=== PATIENT | male | born 1960 | race American Indian/Alaskan Native ===

== ENCOUNTER 2018-09-28 13:46 | Outpatient (CLI) | payer MEDICARE, MEDICAID ==
[2018-09-28 14:09] LABS: #Eosinphils 0.2 thou/uL (0.0-0.7); #Lymphocytes 1.4 thou/uL (1.20-3.40); #Monocytes 0.6 thou/uL (0.11-0.59); #Neutrophils 6.3 thou/uL (1.40-6.50); %Basophils 0.4 % (0.0-1.0); %Eosinophils 1.8 % (0.0-10.0); %Lymphocytes 16.3 % (21.0-51.0); %Monocytes 6.9 % (0.0-10.0); %Neutrophils 74.6 % (42.0-75.0); Mean Corpuscular Hemoglobin 27.7 pg (27.0-31.0); Mean Corpuscular Volume 89.3 fL (78.0-98.0); Mean Platelet Volume 10.6 fL (7.4-10.4); Platelet Count 162 thou/uL (130-400); Red Blood Cell (RBC) Count 5.06 mill/uL (4.70-6.10); White Blood Cell (WBC) Count 8.5 thou/uL (4.8-10.8)
[2018-09-28 14:21] LABS: ALT (SGPT) 12 U/L (8-55); AST (SGOT) 10 U/L (5-34); Albumin 3.4 g/dL (3.5-5.0); Alkaline Phosphatase 113 U/L (40-150); Anion Gap 16 mmol/L (10-20); BUN (Urea Nitrogen) 35 mg/dL (8.4-25.7); Bilirubin, Total 0.4 mg/dL (0.2-1.2); Calc. Creatinine Clearance 0 mL/min (70-130); Calcium 8.2 mg/dL (7.8-10.44); Carbon Dioxide 23 mmol/L (22-29); Cardiac Risk 6.9 (Less than 4.5); Chloride 105 mmol/L (98-107); Cholesterol 137 mg/dl (< 200 Desired); Estimated GFR-MDRD 52; Glucose 381 mg/dL (70-105); HDL Cholesterol 20 mg/dL (>60 Neg Risk); LDL Cholesterol, Calculated 69 mg/dL; Potassium 4.5 mmol/L (3.5-5.1); Protein, Total 6.4 g/dL (6.0-8.3); Sodium 139 mmol/L (136-145); Triglycerides 240 mg/dL (Less than 150)
[2018-09-28 22:33] LABS: Hemoglobin A1c 9.3 % (4.0-6.0)
== END 2018-09-28 13:47 | disposition home or self-care (01) ==
LOC: MADLAB 13:46
PROVIDERS: ATTEND Family Medicine
DX: I12.9 Hypertensive chronic kidney disease with stage 1 through stage 4 chronic kidney disease, or unspecified chronic kidney disease (principal); N18.3 Chronic kidney disease, stage 3 (moderate); D63.1 Anemia in chronic kidney disease; E78.2 Mixed hyperlipidemia; I70.70 Unspecified atherosclerosis of other type of bypass graft(s) of the extremities
CPT/HCPCS: 80053; 80061; 83036; 84443; 85025

== ENCOUNTER 2019-12-09 21:26 | Inpatient (IN) | payer MEDICARE, OTHER, MEDICAID ==
[2019-12-09] MEDS ORDERED: Dextrose 50% Abboject 50 ML SYRINGE IVP PRN (23:45)
[2019-12-09] MEDS ORDERED: Dextrose 5% in Water 1,000 ML IV PRN (23:45)
[2019-12-09] MEDS ORDERED: CEFAZOLIN 1 GM in Sodium Chloride 0.9% 100 ML IVPB SCH (23:59)
[2019-12-10] MEDS: CEFAZOLIN 1 GM in Sodium Chloride 0.9% 100 ML IVPB SCH ×4 (00:14→23:45)
[2019-12-10] MEDS: Acetaminophen 500 MG TAB PO PRN ×2 (07:24→15:53)
[2019-12-10] MEDS ORDERED: Lantus 1000 UNITS/10 ML VIAL SC SCH (09:00)
[2019-12-10] MEDS ORDERED: Metoprolol Tartrate 50 MG TAB PO SCH (09:00)
[2019-12-10] MEDS: HumaLOG 300 UNITS/3 ML VIAL SC SCH ×3 (09:51→17:25)
[2019-12-10] MEDS: Apixaban 5 MG TAB PO SCH ×2 (09:54→20:29)
[2019-12-10] MEDS: Furosemide 20 MG TAB PO SCH ×2 (09:54→14:22)
[2019-12-10] MEDS: Alogliptin 25 MG TAB PO SCH (09:54)
[2019-12-10] MEDS: Emollient 15 oz bottle 450 ML, Triamcinolone Acetonide 200 MG TOP SCH ×3 (09:55→21:04)
[2019-12-10] MEDS: Amlodipine 5 MG TAB PO SCH (09:55)
[2019-12-10] MEDS ORDERED: Mag-Al Plus 1200 MG/1200 MG/120 MG/30 ML UDCUP PO PRN (10:39)
[2019-12-10] MEDS: Lantus 1000 UNITS/10 ML VIAL SC SCH (10:53)
[2019-12-10 11:41] LABS: #Basophils 0.1 thou/uL (0.0-0.2); #Eosinphils 0.1 thou/uL (0.0-0.7); #Lymphocytes 0.9 thou/uL (1.20-3.40); #Monocytes 0.8 thou/uL (0.11-0.59); #Neutrophils 7.5 thou/uL (1.40-6.50); %Eosinophils 1.5 % (0.0-10.0); %Neutrophils 79.5 % (42.0-75.0); Hemoglobin 9.6 g/dL (14.0-18.0); Mean Corpuscular HGB CONC 32.6 g/dL (32.0-36.0); Mean Corpuscular Hemoglobin 28.7 pg (27.0-31.0); Mean Corpuscular Volume 88.1 fL (78.0-98.0); Mean Platelet Volume 9.1 fL (7.4-10.4); Platelet Count 214 thou/uL (130-400); RBC Distribution Width 15.1 % (11.5-14.5); Red Blood Cell (RBC) Count 3.34 mill/uL (4.70-6.10); White Blood Cell (WBC) Count 9.4 thou/uL (4.8-10.8)
[2019-12-10 11:53] LABS: Anion Gap 18 mmol/L (10-20); BUN (Urea Nitrogen) 52 mg/dL (8.4-25.7); Calc. Creatinine Clearance 42 mL/min (70-130); Calcium 7.6 mg/dL (7.8-10.44); Carbon Dioxide 15 mmol/L (22-29); Chloride 111 mmol/L (98-107); Estimated GFR-MDRD 34; Glucose 67 mg/dL (70-105); Sodium 140 mmol/L (136-145)
--- NOTE | 2019-12-10 15:42 | HP ---
PRIMARY CARE PROVIDER: Shikha Adrian MD. HISTORY OF PRESENT ILLNESS: The patient is a 59-year-old male with a past history of insulin-dependent diabetes, medication noncompliance, hypertension, peripheral vascular disease, left BKA, chronic kidney disease, congestive heart failure, who presents for admission for long-term antibiotics and rehabilitation. The patient was recently discharged from [facility] following a hospitalization for sepsis secondary to osteomyelitis and urinary tract infection. The patient also was found to have MSSA bacteremia as well. He was treated initially with vancomycin, cefepime and Flagyl. It was recommended that the patient's diabetic be treated with surgical management. However, patient refused even though he was told that antibiotics alone was not the recommended treatment. With his bacteremia, transthoracic echo was performed which did not find any vegetations. His ejection fraction was 30% to 35%. Long-term antibiotics were initiated. The patient was placed on IV cefazolin and p.o. levofloxacin prior to discharge. PAST MEDICAL HISTORY: 1. Insulin-dependent diabetes mellitus. 2. Infected diabetic ulcers (right lateral broad-based ulcer as well as a small ulcer located between the 4th and 5th digits of the right foot). 3. Left sacral decubitus ulcer present on arrival. 4. Systolic congestive heart failure. 5. Chronic kidney disease stage 3. 6. Hypertension. 7. Hyperlipidemia. 8. History of nicotine dependence. 9. Atrial fibrillation. 10. Coronary artery disease. 11. Peripheral vascular disease. 12. Medication noncompliance. 13. Uncontrolled insulin-dependent diabetes mellitus. ALLERGIES: HYDROCODONE AND METFORMIN. PAST SURGICAL HISTORY: 1. Left BKA. 2. Hernia repair. 3. Tonsillectomy. 4. Right leg skin surgery. PAST SOCIAL HISTORY: The patient lives at home with his partner. Regarding smoking, he states that he is a former smoker. He denies any alcohol or drug use. REVIEW OF SYSTEMS: GENERAL: Patient denies fever, chills, night sweats. HEENT: Patient denies vision changes or eye pain or sore throat. CARDIOVASCULAR: Patient denies chest pain, palpitations. RESPIRATORY: Patient denies cough, shortness of breath. ABDOMEN: Patient denies abdominal pain, nausea, vomiting. He does report chronic diarrhea. URINARY: Patient denies dysuria, hematuria. SKIN: See HPI. PSYCHIATRIC: Patient denies anxiety or depression symptoms. NEUROLOGIC: Patient denies numbness, tingling, confusion. PHYSICAL EXAMINATION: VITAL SIGNS: Temperature 98.6, pulse 73, respirations 19, oxygen 98% on room air, blood pressure 130/73. GENERAL: The patient is alert and oriented x3. He is very disheveled in appearance. HEENT: Extraocular muscles intact. Moist mucous membranes. Poor dentition. CARDIOVASCULAR: Regular rate and rhythm. No murmurs, rubs, or gallops. LUNGS: Clear to auscultation bilaterally. ABDOMEN: Soft, nontender to palpation. Nondistended. No organomegaly. EXTREMITIES: Left lower extremity status post BKA. Right lower extremity with an approximately 4 cm broad-based ulcer to the lateral aspect of the right foot, ulceration between the 4th and 5th digits on the right foot as well as a sacral decubitus ulcer present on admission. SKIN: Changes as noted above. NEUROLOGIC: Cranial nerves 2 through 12 intact grossly. PSYCHIATRIC: Appropriate mood and affect at this time. LABORATORY DATA: Point of care glucose is 66 yesterday evening, point of care glucose was 76 this morning. IMAGING: Transthoracic echo, which showed ejection fraction of 30% to 35%. Right foot x-ray performed on December 05, 2019, at [facility] showed an ulceration of the lateral right foot with findings suspicious for 5th metatarsal base and possibly cuboid osteomyelitis. Arterial ultrasound performed on December 06, 2019, at [facility] showed limited exam without compressibility of the vessels at the level of the ankle, biphasic and monophasic Doppler waveform patterns across the right lower extremity suggestive of aortoiliac disease of significance. Transthoracic echocardiogram performed on December 07, 2019, showed reduced systolic function with an ejection fraction of 30% to 35%, akinesis of mid to distal anterior wall and apex. No pericardial effusion. ASSESSMENT AND PLAN: The patient is a 59-year-old male with medication noncompliance and poorly-controlled insulin-dependent diabetes mellitus, who presents for rehabilitation and long-term antibiotic treatment via IV. 1. Sepsis secondary to osteomyelitis. We will continue antibiotics per recommendations of Infectious Disease with 2 g of Ancef q.12 hours and levofloxacin 750 mg p.o. every other day for a total of 6 weeks of therapy. We will likely need to repeat blood cultures prior to discharge. 2. MSSA bacteremia, see above. 3. Diabetes mellitus. The patient had an A1c of 9.6 at the hospital. He is on Lantus 30 units at home. We will decrease this due to lower blood sugars identified this morning and we will titrate based on before meals and at bedtime Accu- Cheks. Continue sliding scale insulin as well. Diabetic diet ordered. 4. Systolic congestive heart failure. We will put patient on fluid restriction in order to prevent exacerbation. Continue home medications. 5. Chronic kidney disease stage 3. We will renally dose patient's medications and avoid nephrotoxic medications as possible. 6. Infected diabetic foot ulcer. Continue routine wound care. 7. Hypertension. Resume patient's home antihypertensive regimen. Blood pressures have been stable. 8. Atrial fibrillation. The patient is currently rate and rhythm controlled. Continue long-term anticoagulation with Eliquis. 9. Coronary artery disease. We will resume patient's home medications. 10. Peripheral vascular disease. Resume patient's home medications. 11. Hyperlipidemia. Resume home medications. 12. Sacral decubitus ulcer. We will continue wound care as well as position changes and offloading as possible. 13. Recent history of complicated urinary tract infection. Patient had a Pagan catheter that was placed prior to discharge from [facility]. The catheter fell out after admission here and the patient refused to have it replaced. At this time, I do not see any indication for catheter replacement and this may even serve as a new focus of infection. We will hold off at this time and monitor urine output and if there is any concern for retention, may consider replacing. Disposition: Stable. Code status: Full. DVT prophylaxis. The patient is on full anticoagulation with Eliquis. >35 minutes spent preparing patient's admission, including reviewing previous hospital records Job ID: [id number] [facility]
[2019-12-10] MEDS: traMADol HCl 50 MG TAB PO PRN (19:56)
[2019-12-10] MEDS: Gabapentin 300 MG CAP PO SCH (20:29)
[2019-12-10] MEDS ORDERED: FLU VACC QS2020-21(6MOS UP)/PF 60 MCG/0.5 ML SYRINGE IM ONE (21:00)
[2019-12-11] MEDS: HumaLOG 300 UNITS/3 ML VIAL SC SCH ×3 (08:54→17:10)
[2019-12-11] MEDS: Lantus 1000 UNITS/10 ML VIAL SC SCH (08:54)
[2019-12-11] MEDS: Gabapentin 300 MG CAP PO SCH ×2 (08:55→20:46)
[2019-12-11] MEDS: Alogliptin 25 MG TAB PO SCH (08:55)
[2019-12-11] MEDS: Amlodipine 5 MG TAB PO SCH (08:55)
[2019-12-11] MEDS: Furosemide 20 MG TAB PO SCH ×2 (08:55→15:01)
[2019-12-11] MEDS: Tamsulosin HCl 0.4 MG CAP PO SCH (08:56)
[2019-12-11] MEDS: Lisinopril 5 MG TAB PO SCH (08:56)
[2019-12-11] MEDS: Apixaban 5 MG TAB PO SCH ×2 (08:57→20:46)
[2019-12-11] MEDS: Emollient 15 oz bottle 450 ML, Triamcinolone Acetonide 200 MG TOP SCH ×2 (08:57→20:51)
[2019-12-11] MEDS: CEFAZOLIN 1 GM in Sodium Chloride 0.9% 100 ML IVPB SCH ×4 (12:14→23:38)
[2019-12-12] MEDS: Lantus 1000 UNITS/10 ML VIAL SC SCH (08:24)
[2019-12-12] MEDS: Gabapentin 300 MG CAP PO SCH ×2 (08:25→21:10)
[2019-12-12] MEDS: Lisinopril 5 MG TAB PO SCH (08:26)
[2019-12-12] MEDS: Furosemide 20 MG TAB PO SCH ×2 (08:27→15:17)
[2019-12-12] MEDS: Amlodipine 5 MG TAB PO SCH (08:27)
[2019-12-12] MEDS: Tamsulosin HCl 0.4 MG CAP PO SCH (08:27)
[2019-12-12] MEDS: Alogliptin 25 MG TAB PO SCH (08:27)
[2019-12-12] MEDS: HumaLOG 300 UNITS/3 ML VIAL SC SCH ×3 (08:29→17:16)
[2019-12-12] MEDS: Apixaban 5 MG TAB PO SCH ×2 (08:32→21:10)
[2019-12-12] MEDS: Polyethylene Glycol 3350 17 GM Packet PER TUBE SCH (08:33)
[2019-12-12] MEDS: Emollient 15 oz bottle 450 ML, Triamcinolone Acetonide 200 MG TOP SCH ×2 (11:27→21:20)
[2019-12-12] MEDS: Acetaminophen 500 MG TAB PO PRN ×2 (11:27→21:10)
[2019-12-12] MEDS: CEFAZOLIN 1 GM in Sodium Chloride 0.9% 100 ML IVPB SCH ×4 (12:36→23:25)
[2019-12-12] MEDS: HumaLOG 300 UNITS/3 ML VIAL SC PRN (21:10)
[2019-12-13 06:19] LABS: Hemoglobin 9.2 g/dL (14.0-18.0); Platelet Count 236 thou/uL (130-400)
[2019-12-13] MEDS: Tamsulosin HCl 0.4 MG CAP PO SCH (08:04)
[2019-12-13] MEDS: Polyethylene Glycol 3350 17 GM Packet PER TUBE SCH (08:04)
[2019-12-13] MEDS: Apixaban 5 MG TAB PO SCH ×2 (08:04→20:52)
[2019-12-13] MEDS: Alogliptin 25 MG TAB PO SCH (08:05)
[2019-12-13] MEDS: Gabapentin 300 MG CAP PO SCH ×2 (08:05→20:52)
[2019-12-13] MEDS: Amlodipine 5 MG TAB PO SCH (08:05)
[2019-12-13] MEDS: Lisinopril 5 MG TAB PO SCH (08:06)
[2019-12-13] MEDS: Furosemide 20 MG TAB PO SCH ×2 (08:06→14:21)
[2019-12-13] MEDS: HumaLOG 300 UNITS/3 ML VIAL SC SCH ×3 (08:42→17:06)
[2019-12-13] MEDS: Lantus 1000 UNITS/10 ML VIAL SC SCH (08:50)
[2019-12-13] MEDS: Emollient 15 oz bottle 450 ML, Triamcinolone Acetonide 200 MG TOP SCH ×2 (09:04→21:11)
[2019-12-13] MEDS: CEFAZOLIN 1 GM in Sodium Chloride 0.9% 100 ML IVPB SCH ×4 (11:44→23:45)
[2019-12-13] MEDS: HumaLOG 300 UNITS/3 ML VIAL SC PRN (21:02)
[2019-12-14] MEDS: Tamsulosin HCl 0.4 MG CAP PO SCH (08:17)
[2019-12-14] MEDS: Alogliptin 25 MG TAB PO SCH (08:17)
[2019-12-14] MEDS: Polyethylene Glycol 3350 17 GM Packet PER TUBE SCH (08:17)
[2019-12-14] MEDS: Furosemide 20 MG TAB PO SCH ×2 (08:17→14:39)
[2019-12-14] MEDS: Amlodipine 5 MG TAB PO SCH (08:17)
[2019-12-14] MEDS: Apixaban 5 MG TAB PO SCH ×2 (08:17→19:28)
[2019-12-14] MEDS: Gabapentin 300 MG CAP PO SCH ×2 (08:17→19:28)
[2019-12-14] MEDS: Lantus 1000 UNITS/10 ML VIAL SC SCH (08:18)
[2019-12-14] MEDS: Lisinopril 5 MG TAB PO SCH (08:18)
[2019-12-14] MEDS: Emollient 15 oz bottle 450 ML, Triamcinolone Acetonide 200 MG TOP SCH ×2 (08:19→22:30)
[2019-12-14] MEDS: HumaLOG 300 UNITS/3 ML VIAL SC SCH ×3 (08:19→17:29)
[2019-12-14] MEDS: CEFAZOLIN 1 GM in Sodium Chloride 0.9% 100 ML IVPB SCH ×2 (12:12→12:13)
[2019-12-14] MEDS: Acetaminophen 500 MG TAB PO PRN (19:28)
[2019-12-14] MEDS: Senokot S 8.6-50 MG TAB PO SCH (19:28)
[2019-12-14] MEDS: HumaLOG 300 UNITS/3 ML VIAL SC PRN (20:57)
[2019-12-15] MEDS ORDERED: CEFAZOLIN 1 GM VIAL ONE (06:21)
[2019-12-15] MEDS: CEFAZOLIN 1 GM in Sodium Chloride 0.9% 100 ML IVPB SCH ×4 (06:23→12:04)
[2019-12-15] MEDS: HumaLOG 300 UNITS/3 ML VIAL SC SCH ×3 (09:14→17:17)
[2019-12-15] MEDS: Senokot S 8.6-50 MG TAB PO SCH ×2 (09:15→21:19)
[2019-12-15] MEDS: Lantus 1000 UNITS/10 ML VIAL SC SCH (09:15)
[2019-12-15] MEDS: Apixaban 5 MG TAB PO SCH ×2 (09:15→20:16)
[2019-12-15] MEDS: Amlodipine 5 MG TAB PO SCH (09:15)
[2019-12-15] MEDS: Lisinopril 5 MG TAB PO SCH (09:16)
[2019-12-15] MEDS: Alogliptin 25 MG TAB PO SCH (09:16)
[2019-12-15] MEDS: Tamsulosin HCl 0.4 MG CAP PO SCH (09:16)
[2019-12-15] MEDS: Gabapentin 300 MG CAP PO SCH ×2 (09:16→20:16)
[2019-12-15] MEDS: traMADol HCl 50 MG TAB PO PRN (09:17)
[2019-12-15] MEDS: Furosemide 20 MG TAB PO SCH ×2 (09:17→14:35)
[2019-12-15] MEDS: Polyethylene Glycol 3350 17 GM Packet PER TUBE SCH (09:17)
[2019-12-15] MEDS: Emollient 15 oz bottle 450 ML, Triamcinolone Acetonide 200 MG TOP SCH ×2 (09:18→21:20)
[2019-12-15] MEDS: CEFAZOLIN 2 GM in Premix Bag 1 BAG IVPB SCH (23:58)
[2019-12-16 05:47] LABS: Hemoglobin 9.4 g/dL (14.0-18.0); Platelet Count 252 thou/uL (130-400)
[2019-12-16] MEDS: Tamsulosin HCl 0.4 MG CAP PO SCH (08:34)
[2019-12-16] MEDS: Alogliptin 25 MG TAB PO SCH (08:35)
[2019-12-16] MEDS: Gabapentin 300 MG CAP PO SCH ×2 (08:35→20:23)
[2019-12-16] MEDS: Furosemide 20 MG TAB PO SCH ×2 (08:35→14:48)
[2019-12-16] MEDS: Lisinopril 5 MG TAB PO SCH (08:35)
[2019-12-16] MEDS: Apixaban 5 MG TAB PO SCH ×2 (08:35→20:23)
[2019-12-16] MEDS: Amlodipine 5 MG TAB PO SCH (08:35)
[2019-12-16] MEDS: Emollient 15 oz bottle 450 ML, Triamcinolone Acetonide 200 MG TOP SCH ×2 (08:36→20:24)
[2019-12-16] MEDS: Polyethylene Glycol 3350 17 GM Packet PER TUBE SCH (08:36)
[2019-12-16] MEDS: Senokot S 8.6-50 MG TAB PO SCH ×2 (08:36→20:23)
[2019-12-16] MEDS: HumaLOG 300 UNITS/3 ML VIAL SC SCH ×3 (08:42→17:22)
[2019-12-16] MEDS: Lantus 1000 UNITS/10 ML VIAL SC SCH (08:43)
[2019-12-16] MEDS: CEFAZOLIN 2 GM in Premix Bag 1 BAG IVPB SCH ×2 (11:44→23:49)
[2019-12-16] MEDS: HumaLOG 300 UNITS/3 ML VIAL SC PRN (21:44)
[2019-12-17] MEDS: traMADol HCl 50 MG TAB PO PRN (00:03)
[2019-12-17 07:25] LABS: #Basophils 0.1 thou/uL (0.0-0.2); #Eosinphils 0.3 thou/uL (0.0-0.7); #Lymphocytes 0.9 thou/uL (1.20-3.40); #Monocytes 0.7 thou/uL (0.11-0.59); #Neutrophils 9.3 thou/uL (1.40-6.50); %Basophils 0.6 % (0.0-1.0); %Eosinophils 2.3 % (0.0-10.0); %Lymphocytes 7.9 % (21.0-51.0); %Monocytes 5.8 % (0.0-10.0); %Neutrophils 83.4 % (42.0-75.0); Hemoglobin 9.2 g/dL (14.0-18.0); Mean Corpuscular Hemoglobin 27.5 pg (27.0-31.0); Mean Corpuscular Volume 88.8 fL (78.0-98.0); Mean Platelet Volume 8.2 fL (7.4-10.4); Platelet Count 255 thou/uL (130-400); RBC Distribution Width 15.1 % (11.5-14.5); Red Blood Cell (RBC) Count 3.35 mill/uL (4.70-6.10); White Blood Cell (WBC) Count 11.2 thou/uL (4.8-10.8)
[2019-12-17 07:42] LABS: ALT (SGPT) Less than 7 U/L (8-55); AST (SGOT) 11 U/L (5-34); Albumin 2.4 g/dL (3.5-5.0); Alkaline Phosphatase 183 U/L (40-110); Anion Gap 17 mmol/L (10-20); BUN (Urea Nitrogen) 54 mg/dL (8.4-25.7); Bilirubin, Total 0.3 mg/dL (0.2-1.2); CRP (Inflammatory) 10.88 mg/dL (= or < 0.5); Calc. Creatinine Clearance 35 mL/min (70-130); Calcium 7.8 mg/dL (7.8-10.44); Carbon Dioxide 19 mmol/L (22-29); Chloride 109 mmol/L (98-107); Estimated GFR-MDRD 27; Globulin 3.5 g/dL (2.4-3.5); Glucose 162 mg/dL (70-105); Potassium 3.4 mmol/L (3.5-5.1); Protein, Total 5.9 g/dL (6.0-8.3); Sodium 142 mmol/L (136-145)
[2019-12-17] MEDS: Gabapentin 300 MG CAP PO SCH ×2 (08:51→20:46)
[2019-12-17] MEDS: Alogliptin 25 MG TAB PO SCH (08:51)
[2019-12-17] MEDS: Apixaban 5 MG TAB PO SCH ×2 (08:51→20:46)
[2019-12-17] MEDS: Ferrous Sulfate 325 MG TAB PO SCH ×2 (08:51→18:23)
[2019-12-17] MEDS: Amlodipine 5 MG TAB PO SCH (08:51)
[2019-12-17] MEDS: Furosemide 20 MG TAB PO SCH ×2 (08:51→14:00)
[2019-12-17] MEDS: Lisinopril 5 MG TAB PO SCH (08:51)
[2019-12-17] MEDS: Tamsulosin HCl 0.4 MG CAP PO SCH (08:51)
[2019-12-17] MEDS: Senokot S 8.6-50 MG TAB PO SCH ×2 (08:52→20:47)
[2019-12-17] MEDS: Polyethylene Glycol 3350 17 GM Packet PER TUBE SCH (08:52)
[2019-12-17] MEDS: Saccharomyces boulardii 250 MG CAP PO SCH (08:52)
[2019-12-17] MEDS: Lantus 1000 UNITS/10 ML VIAL SC SCH (08:54)
[2019-12-17] MEDS: HumaLOG 300 UNITS/3 ML VIAL SC SCH ×3 (08:54→18:24)
[2019-12-17] MEDS: Emollient 15 oz bottle 450 ML, Triamcinolone Acetonide 200 MG TOP SCH ×2 (08:55→20:49)
[2019-12-17] MEDS: Acetaminophen 500 MG TAB PO PRN (09:04)
[2019-12-17] MEDS ORDERED: Potassium Chloride 20 MEQ TAB PO SCH (11:00)
[2019-12-17] MEDS: CEFAZOLIN 2 GM in Premix Bag 1 BAG IVPB SCH ×2 (13:08→23:53)
[2019-12-18] MEDS: Tamsulosin HCl 0.4 MG CAP PO SCH (08:20)
[2019-12-18] MEDS: Apixaban 5 MG TAB PO SCH ×2 (08:20→20:03)
[2019-12-18] MEDS: Gabapentin 300 MG CAP PO SCH ×2 (08:20→20:03)
[2019-12-18] MEDS: Furosemide 20 MG TAB PO SCH (08:21)
[2019-12-18] MEDS: Amlodipine 5 MG TAB PO SCH (08:21)
[2019-12-18] MEDS: Alogliptin 25 MG TAB PO SCH (08:21)
[2019-12-18] MEDS: Potassium Chloride 20 MEQ TAB PO SCH (08:21)
[2019-12-18] MEDS: Ferrous Sulfate 325 MG TAB PO SCH ×2 (08:21→16:50)
[2019-12-18] MEDS: Saccharomyces boulardii 250 MG CAP PO SCH (08:21)
[2019-12-18] MEDS: Polyethylene Glycol 3350 17 GM Packet PER TUBE SCH (08:21)
[2019-12-18] MEDS: Emollient 15 oz bottle 450 ML, Triamcinolone Acetonide 200 MG TOP SCH ×2 (08:22→20:07)
[2019-12-18] MEDS: Senokot S 8.6-50 MG TAB PO SCH ×2 (08:22→20:03)
[2019-12-18] MEDS: Lantus 1000 UNITS/10 ML VIAL SC SCH (08:23)
[2019-12-18] MEDS: HumaLOG 300 UNITS/3 ML VIAL SC SCH ×3 (08:23→16:50)
[2019-12-18] MEDS: CEFAZOLIN 2 GM in Premix Bag 1 BAG IVPB SCH ×2 (11:39→23:35)
[2019-12-18] MEDS: traMADol HCl 50 MG TAB PO PRN (20:03)
[2019-12-19 05:22] LABS: #Eosinphils 0.1 thou/uL (0.0-0.7); #Lymphocytes 0.9 thou/uL (1.20-3.40); #Monocytes 0.6 thou/uL (0.11-0.59); #Neutrophils 10.2 thou/uL (1.40-6.50); %Basophils 0.4 % (0.0-1.0); %Eosinophils 0.9 % (0.0-10.0); %Lymphocytes 7.4 % (21.0-51.0); %Monocytes 5.1 % (0.0-10.0); %Neutrophils 86.1 % (42.0-75.0); Hemoglobin 8.4 g/dL (14.0-18.0); Mean Corpuscular HGB CONC 31.7 g/dL (32.0-36.0); Mean Corpuscular Hemoglobin 27.9 pg (27.0-31.0); Mean Platelet Volume 8.6 fL (7.4-10.4); Platelet Count 255 thou/uL (130-400); RBC Distribution Width 14.9 % (11.5-14.5); Red Blood Cell (RBC) Count 3.01 mill/uL (4.70-6.10); White Blood Cell (WBC) Count 11.8 thou/uL (4.8-10.8)
[2019-12-19 05:58] LABS: Anion Gap 17 mmol/L (10-20); BUN (Urea Nitrogen) 55 mg/dL (8.4-25.7); Calc. Creatinine Clearance 37 mL/min (70-130); Calcium 7.7 mg/dL (7.8-10.44); Carbon Dioxide 18 mmol/L (22-29); Chloride 109 mmol/L (98-107); Estimated GFR-MDRD 28; Glucose 173 mg/dL (70-105); Potassium 4.2 mmol/L (3.5-5.1); Sodium 140 mmol/L (136-145)
[2019-12-19] MEDS: Apixaban 2.5 MG TAB PO SCH ×2 (08:00→20:07)
[2019-12-19] MEDS: Ferrous Sulfate 325 MG TAB PO SCH ×2 (08:38→17:40)
[2019-12-19] MEDS: Senokot S 8.6-50 MG TAB PO SCH ×2 (08:38→20:07)
[2019-12-19] MEDS: Saccharomyces boulardii 250 MG CAP PO SCH (08:39)
[2019-12-19] MEDS: Furosemide 20 MG TAB PO SCH (08:39)
[2019-12-19] MEDS: Gabapentin 300 MG CAP PO SCH ×2 (08:41→20:07)
[2019-12-19] MEDS: Amlodipine 5 MG TAB PO SCH (08:41)
[2019-12-19] MEDS: Apixaban 5 MG TAB PO SCH (08:42)
[2019-12-19] MEDS: Tamsulosin HCl 0.4 MG CAP PO SCH (08:42)
[2019-12-19] MEDS: Potassium Chloride 20 MEQ TAB PO SCH (08:42)
[2019-12-19] MEDS: Alogliptin 25 MG TAB PO SCH (08:42)
[2019-12-19] MEDS: Polyethylene Glycol 3350 17 GM Packet PER TUBE SCH (08:42)
[2019-12-19] MEDS: HumaLOG 300 UNITS/3 ML VIAL SC SCH ×5 (08:43→17:41)
[2019-12-19] MEDS: Lantus 1000 UNITS/10 ML VIAL SC SCH (09:00)
[2019-12-19] MEDS: Emollient 15 oz bottle 450 ML, Triamcinolone Acetonide 200 MG TOP SCH ×2 (12:07→20:08)
[2019-12-19] MEDS: CEFAZOLIN 2 GM in Premix Bag 1 BAG IVPB SCH ×2 (12:11→23:17)
[2019-12-19] MEDS ORDERED: Sodium Chloride Irrig Solution 250 ML ONE (14:45)
[2019-12-19] MEDS: traMADol HCl 50 MG TAB PO PRN (20:12)
[2019-12-20] MEDS: Lantus 1000 UNITS/10 ML VIAL SC SCH (08:38)
[2019-12-20] MEDS: HumaLOG 300 UNITS/3 ML VIAL SC SCH ×3 (08:38→17:06)
[2019-12-20] MEDS: Alogliptin 25 MG TAB PO SCH (08:39)
[2019-12-20] MEDS: Apixaban 2.5 MG TAB PO SCH ×2 (08:39→20:31)
[2019-12-20] MEDS: Tamsulosin HCl 0.4 MG CAP PO SCH (08:39)
[2019-12-20] MEDS: Polyethylene Glycol 3350 17 GM Packet PER TUBE SCH (08:39)
[2019-12-20] MEDS: Saccharomyces boulardii 250 MG CAP PO SCH (08:39)
[2019-12-20] MEDS: Ferrous Sulfate 325 MG TAB PO SCH ×2 (08:39→17:05)
[2019-12-20] MEDS: Furosemide 20 MG TAB PO SCH (08:39)
[2019-12-20] MEDS: Potassium Chloride 20 MEQ TAB PO SCH (08:40)
[2019-12-20] MEDS: Amlodipine 5 MG TAB PO SCH (08:40)
[2019-12-20] MEDS: Senokot S 8.6-50 MG TAB PO SCH ×2 (08:40→20:31)
[2019-12-20] MEDS: Gabapentin 300 MG CAP PO SCH ×2 (08:41→20:30)
[2019-12-20] MEDS: Emollient 15 oz bottle 450 ML, Triamcinolone Acetonide 200 MG TOP SCH ×2 (08:42→20:32)
[2019-12-20] MEDS: CEFAZOLIN 2 GM in Premix Bag 1 BAG IVPB SCH ×2 (12:04→23:55)
[2019-12-20] MEDS: traMADol HCl 50 MG TAB PO PRN (20:30)
[2019-12-21] MEDS: Apixaban 2.5 MG TAB PO SCH ×2 (08:26→21:31)
[2019-12-21] MEDS: Alogliptin 25 MG TAB PO SCH (08:26)
[2019-12-21] MEDS: Ferrous Sulfate 325 MG TAB PO SCH ×2 (08:26→17:33)
[2019-12-21] MEDS: Furosemide 20 MG TAB PO SCH (08:26)
[2019-12-21] MEDS: Senokot S 8.6-50 MG TAB PO SCH ×2 (08:27→21:31)
[2019-12-21] MEDS: Polyethylene Glycol 3350 17 GM Packet PER TUBE SCH (08:27)
[2019-12-21] MEDS: Saccharomyces boulardii 250 MG CAP PO SCH (08:27)
[2019-12-21] MEDS: Amlodipine 5 MG TAB PO SCH (08:27)
[2019-12-21] MEDS: Gabapentin 300 MG CAP PO SCH ×2 (08:27→21:31)
[2019-12-21] MEDS: Tamsulosin HCl 0.4 MG CAP PO SCH (08:28)
[2019-12-21] MEDS: Potassium Chloride 20 MEQ TAB PO SCH (08:28)
[2019-12-21] MEDS: Emollient 15 oz bottle 450 ML, Triamcinolone Acetonide 200 MG TOP SCH ×2 (08:29→21:31)
[2019-12-21] MEDS: Lantus 1000 UNITS/10 ML VIAL SC SCH (08:30)
[2019-12-21] MEDS: HumaLOG 300 UNITS/3 ML VIAL SC SCH ×3 (08:30→17:33)
[2019-12-21] MEDS: traMADol HCl 50 MG TAB PO PRN (08:38)
[2019-12-21] MEDS: CEFAZOLIN 2 GM in Premix Bag 1 BAG IVPB SCH ×2 (12:09→23:59)
[2019-12-21] MEDS ORDERED: Furosemide 20 MG TAB PO SCH (17:45)
[2019-12-22 04:51] LABS: #Basophils 0.1 thou/uL (0.0-0.2); #Eosinphils 0.1 thou/uL (0.0-0.7); #Lymphocytes 0.5 thou/uL (1.20-3.40); #Monocytes 0.7 thou/uL (0.11-0.59); #Neutrophils 8.7 thou/uL (1.40-6.50); %Eosinophils 1.1 % (0.0-10.0); %Lymphocytes 5.1 % (21.0-51.0); %Monocytes 6.8 % (0.0-10.0); Hemoglobin 8.2 g/dL (14.0-18.0); Mean Corpuscular HGB CONC 31.9 g/dL (32.0-36.0); Mean Corpuscular Hemoglobin 27.7 pg (27.0-31.0); Mean Corpuscular Volume 86.9 fL (78.0-98.0); Mean Platelet Volume 8.5 fL (7.4-10.4); Platelet Count 261 thou/uL (130-400); RBC Distribution Width 15.1 % (11.5-14.5); Red Blood Cell (RBC) Count 2.95 mill/uL (4.70-6.10); White Blood Cell (WBC) Count 10.1 thou/uL (4.8-10.8)
[2019-12-22 05:53] LABS: Anion Gap 17 mmol/L (10-20); BUN (Urea Nitrogen) 60 mg/dL (8.4-25.7); CRP (Inflammatory) 14.63 mg/dL (= or < 0.5); Calc. Creatinine Clearance 36 mL/min (70-130); Calcium 7.8 mg/dL (7.8-10.44); Carbon Dioxide 18 mmol/L (22-29); Chloride 107 mmol/L (98-107); Estimated GFR-MDRD 27; Glucose 135 mg/dL (70-105); Potassium 5.7 mmol/L (3.5-5.1); Sodium 136 mmol/L (136-145)
[2019-12-22] MEDS: Lantus 1000 UNITS/10 ML VIAL SC SCH (08:18)
[2019-12-22] MEDS: HumaLOG 300 UNITS/3 ML VIAL SC SCH ×3 (08:18→17:18)
[2019-12-22] MEDS: Alogliptin 25 MG TAB PO SCH (08:19)
[2019-12-22] MEDS: Saccharomyces boulardii 250 MG CAP PO SCH (09:00)
[2019-12-22] MEDS: Gabapentin 300 MG CAP PO SCH ×2 (09:00→21:15)
[2019-12-22] MEDS: Tamsulosin HCl 0.4 MG CAP PO SCH (09:00)
[2019-12-22] MEDS: Ferrous Sulfate 325 MG TAB PO SCH ×2 (09:01→17:15)
[2019-12-22] MEDS: Amlodipine 5 MG TAB PO SCH (09:01)
[2019-12-22] MEDS: Furosemide 20 MG TAB PO SCH ×2 (09:01→13:59)
[2019-12-22] MEDS: Apixaban 2.5 MG TAB PO SCH ×2 (09:01→21:15)
[2019-12-22] MEDS: Emollient 15 oz bottle 450 ML, Triamcinolone Acetonide 200 MG TOP SCH ×2 (09:03→21:29)
[2019-12-22] MEDS: Senokot S 8.6-50 MG TAB PO SCH ×3 (09:24→21:15)
--- NOTE | 2019-12-22 09:44 | CT ---
CT ABDOMEN NONCONTRAST CT PELVIS NONCONTRAST: (Urolithiasis protocol) DATE: 12/22/2019 HISTORY: 59-year-old male with abdominal pain, abdominal distention, and nausea. Suspected small bowel obstruc tion. COMPARISON: 08/05/2019 TECHNIQUE: IV injection of iodinated contrast media: None Oral contrast media: None FINDINGS: Other than for urolithiasis, the lack of IV and oral contrast limits the evaluation. There is a new moderate size right pleural effusion with passive atelectasis in adjacent portion of r ight lower lobe. There is a new small left pleural effusion with passive atelectasis in adjacent portion of left lower lobe. No small bowel dilation. The previously demonstrated Pagan catheter is no longer in place. Diffuse mural thickening of urinary bladder remains, up to 1.3 cm in thickness. Edema throughout the subcutaneous fat surrounding the abdomen and pelvis. Diffuse mural thickening throughout the entire rectum, from rectosigmoid junction to anorectal juncti on. There is abundant stool in the lumen of the rectum, but less than on the prior CT, with less rectal distention now than before. Transverse diameter of the rectum is 6 cm currently. Abundant stool throughout the entire colon. Fat stranding throughout mesentery, retroperitoneum, and pelvic cavity, suggestive of edema/minimal a scites. No organized fluid collection. The edema decreases the sensitivity for the detection of colonic diverticulitis. No renal or bladder calculus. No hydronephrosis. Atherosclerosis of abdominal aorta without aneurysm. Within the limitations of a noncontrast scan, no obvious, gross pathology identified involving adrena ls, liver, and spleen. Tiny amount of free fluid adjacent to right lobe of liver laterally. Difficult to evaluate for mild pancreatitis. No evidence of acute appendicitis. IMPRESSION: 1) diffuse mural thickening of urinary bladder: Chronic cystitis versus acute cystitis. 2) bilateral pleural effusions, right greater than left. 3) diffuse mural thickening of entire rectum suggestive of proctitis. 4) no small bowel obstruction. 5) possible constipation 6) minimal ascites. 7) no urolithiasis or obstructive uropathy
[2019-12-22] MEDS: CEFAZOLIN 2 GM in Premix Bag 1 BAG IVPB SCH ×2 (11:47→23:46)
[2019-12-22] MEDS: traMADol HCl 50 MG TAB PO PRN (21:13)
[2019-12-23 05:40] LABS: Hemoglobin 8.8 g/dL (14.0-18.0); Mean Corpuscular HGB CONC 31.4 g/dL (32.0-36.0); Mean Corpuscular Hemoglobin 27.2 pg (27.0-31.0); Mean Corpuscular Volume 86.6 fL (78.0-98.0); Mean Platelet Volume 7.9 fL (7.4-10.4); Platelet Count 273 thou/uL (130-400); RBC Distribution Width 15.1 % (11.5-14.5); Red Blood Cell (RBC) Count 3.25 mill/uL (4.70-6.10); White Blood Cell (WBC) Count 7.7 thou/uL (4.8-10.8)
[2019-12-23 06:24] LABS: Anion Gap 18 mmol/L (10-20); BUN (Urea Nitrogen) 61 mg/dL (8.4-25.7); Calc. Creatinine Clearance 34 mL/min (70-130); Calcium 8.2 mg/dL (7.8-10.44); Carbon Dioxide 18 mmol/L (22-29); Chloride 108 mmol/L (98-107); Estimated GFR-MDRD 25; Glucose 191 mg/dL (70-105); Sodium 139 mmol/L (136-145)
[2019-12-23] MEDS: HumaLOG 300 UNITS/3 ML VIAL SC SCH ×3 (08:47→17:02)
[2019-12-23] MEDS: Ferrous Sulfate 325 MG TAB PO SCH ×2 (08:47→17:01)
[2019-12-23] MEDS: Amlodipine 5 MG TAB PO SCH (08:50)
[2019-12-23] MEDS: Alogliptin 25 MG TAB PO SCH (08:50)
[2019-12-23] MEDS: Saccharomyces boulardii 250 MG CAP PO SCH (08:50)
[2019-12-23] MEDS: Senokot S 8.6-50 MG TAB PO SCH ×2 (08:50→20:42)
[2019-12-23] MEDS: Furosemide 40 MG TAB PO SCH ×2 (08:51→14:47)
[2019-12-23] MEDS: Apixaban 2.5 MG TAB PO SCH ×2 (08:51→20:42)
[2019-12-23] MEDS: Tamsulosin HCl 0.4 MG CAP PO SCH (08:51)
[2019-12-23] MEDS: Lantus 1000 UNITS/10 ML VIAL SC SCH (08:51)
[2019-12-23] MEDS: Gabapentin 300 MG CAP PO SCH ×2 (08:54→20:42)
[2019-12-23] MEDS: Emollient 15 oz bottle 450 ML, Triamcinolone Acetonide 200 MG TOP SCH ×2 (08:56→20:45)
[2019-12-23] MEDS: CEFAZOLIN 2 GM in Premix Bag 1 BAG IVPB SCH ×2 (11:31→23:51)
[2019-12-23] MEDS: traMADol HCl 50 MG TAB PO PRN (20:49)
[2019-12-24 06:57] LABS: Anion Gap 16 mmol/L (10-20); BUN (Urea Nitrogen) 58 mg/dL (8.4-25.7); Calc. Creatinine Clearance 42 mL/min (70-130); Calcium 8.1 mg/dL (7.8-10.44); Carbon Dioxide 20 mmol/L (22-29); Chloride 106 mmol/L (98-107); Estimated GFR-MDRD 32; Glucose 137 mg/dL (70-105); Potassium 5.1 mmol/L (3.5-5.1); Sodium 137 mmol/L (136-145)
[2019-12-24] MEDS: Ferrous Sulfate 325 MG TAB PO SCH ×2 (09:41→17:11)
[2019-12-24] MEDS: HumaLOG 300 UNITS/3 ML VIAL SC SCH ×3 (09:42→17:12)
[2019-12-24] MEDS: Gabapentin 300 MG CAP PO SCH ×2 (09:43→20:50)
[2019-12-24] MEDS: Saccharomyces boulardii 250 MG CAP PO SCH (09:43)
[2019-12-24] MEDS: Apixaban 2.5 MG TAB PO SCH ×2 (09:44→20:50)
[2019-12-24] MEDS: Senokot S 8.6-50 MG TAB PO SCH ×2 (09:44→20:40)
[2019-12-24] MEDS: Tamsulosin HCl 0.4 MG CAP PO SCH (09:44)
[2019-12-24] MEDS: Amlodipine 5 MG TAB PO SCH (09:44)
[2019-12-24] MEDS: Alogliptin 25 MG TAB PO SCH (09:44)
[2019-12-24] MEDS: Acetaminophen 500 MG TAB PO PRN (09:44)
[2019-12-24] MEDS: Furosemide 40 MG TAB PO SCH ×2 (09:44→14:15)
[2019-12-24] MEDS: Lantus 1000 UNITS/10 ML VIAL SC SCH (09:47)
[2019-12-24] MEDS: Emollient 15 oz bottle 450 ML, Triamcinolone Acetonide 200 MG TOP SCH ×2 (09:49→20:41)
[2019-12-24] MEDS: CEFAZOLIN 2 GM in Premix Bag 1 BAG IVPB SCH ×2 (11:36→23:36)
[2019-12-24] MEDS: traMADol HCl 50 MG TAB PO PRN (14:13)
[2019-12-25] MEDS: Tamsulosin HCl 0.4 MG CAP PO SCH (09:18)
[2019-12-25] MEDS: Amlodipine 5 MG TAB PO SCH (09:18)
[2019-12-25] MEDS: Senokot S 8.6-50 MG TAB PO SCH ×2 (09:19→20:17)
[2019-12-25] MEDS: Saccharomyces boulardii 250 MG CAP PO SCH (09:19)
[2019-12-25] MEDS: Apixaban 2.5 MG TAB PO SCH ×2 (09:19→20:17)
[2019-12-25] MEDS: Furosemide 40 MG TAB PO SCH ×2 (09:19→14:20)
[2019-12-25] MEDS: Gabapentin 300 MG CAP PO SCH ×2 (09:19→20:18)
[2019-12-25] MEDS: Alogliptin 25 MG TAB PO SCH (09:19)
[2019-12-25] MEDS: Ferrous Sulfate 325 MG TAB PO SCH ×2 (09:19→17:26)
[2019-12-25] MEDS: HumaLOG 300 UNITS/3 ML VIAL SC SCH ×3 (09:20→17:27)
[2019-12-25] MEDS: Lantus 1000 UNITS/10 ML VIAL SC SCH (09:20)
[2019-12-25] MEDS: Emollient 15 oz bottle 450 ML, Triamcinolone Acetonide 200 MG TOP SCH ×2 (09:21→20:18)
[2019-12-25] MEDS: CEFAZOLIN 2 GM in Premix Bag 1 BAG IVPB SCH ×2 (11:43→23:08)
[2019-12-25] MEDS ORDERED: Loratadine 10 MG TAB PO SCH (11:45)
[2019-12-25] MEDS: Acetaminophen 500 MG TAB PO PRN (12:07)
[2019-12-26] MEDS: traMADol HCl 50 MG TAB PO PRN ×2 (05:21→20:27)
[2019-12-26] MEDS: Furosemide 40 MG TAB PO SCH ×2 (08:12→14:57)
[2019-12-26] MEDS: Ferrous Sulfate 325 MG TAB PO SCH ×2 (08:13→17:03)
[2019-12-26] MEDS: Saccharomyces boulardii 250 MG CAP PO SCH (08:13)
[2019-12-26] MEDS: Amlodipine 5 MG TAB PO SCH (08:13)
[2019-12-26] MEDS: Tamsulosin HCl 0.4 MG CAP PO SCH (08:14)
[2019-12-26] MEDS: Gabapentin 300 MG CAP PO SCH ×2 (08:14→20:22)
[2019-12-26] MEDS: Apixaban 2.5 MG TAB PO SCH ×2 (08:14→20:23)
[2019-12-26] MEDS: Alogliptin 25 MG TAB PO SCH (08:14)
[2019-12-26] MEDS: Emollient 15 oz bottle 450 ML, Triamcinolone Acetonide 200 MG TOP SCH ×2 (08:15→20:23)
[2019-12-26] MEDS: Senokot S 8.6-50 MG TAB PO SCH ×2 (08:15→20:08)
--- NOTE | 2019-12-26 08:26 | RAD ---
EXAM: XR Chest 1 View Portable PROVIDED CLINICAL HISTORY: Abdominal pain COMPARISON: 08/25/2019 FINDINGS: The cardiac silhouette appears enlarged, which may be least partially on the basis of portable techni que. The left lateral costophrenic angle was not included, limiting evaluation. There is elevation of the right hemidiaphragm and blunting of the right costophrenic angle with patchy right basilar air space disease. No evidence for pneumothorax. IMPRESSION: Right basilar pleural-parenchymal opacity. This may reflect pleural fluid with adjacent atelectasis a nd/or infiltrate.
[2019-12-26] MEDS ORDERED: Loratadine 10 MG TAB PO SCH (09:00)
[2019-12-26 09:02] VITALS: BP 152/87; TEMP 99.1
[2019-12-26 09:23] LABS: ALT (SGPT) Less than 7 U/L (8-55); AST (SGOT) 13 U/L (5-34); Albumin 2.9 g/dL (3.5-5.0); Alkaline Phosphatase 385 U/L (40-110); Anion Gap 20 mmol/L (10-20); BUN (Urea Nitrogen) 60 mg/dL (8.4-25.7); Bilirubin, Total 0.2 mg/dL (0.2-1.2); Calc. Creatinine Clearance 35 mL/min (70-130); Calcium 7.9 mg/dL (7.8-10.44); Carbon Dioxide 19 mmol/L (22-29); Chloride 101 mmol/L (98-107); Estimated GFR-MDRD 26; Glucose 176 mg/dL (70-105); Potassium 5.1 mmol/L (3.5-5.1); Protein, Total 6.9 g/dL (6.0-8.3); Sodium 135 mmol/L (136-145)
[2019-12-26] MEDS: HumaLOG 300 UNITS/3 ML VIAL SC SCH ×3 (09:41→17:04)
[2019-12-26] MEDS: Lantus 1000 UNITS/10 ML VIAL SC SCH (09:41)
[2019-12-26 09:42] LABS: Mean Corpuscular HGB CONC 30.8 g/dL (32.0-36.0); Mean Corpuscular Hemoglobin 26.6 pg (27.0-31.0); Mean Corpuscular Volume 86.3 fL (78.0-98.0); Mean Platelet Volume 8.5 fL (7.4-10.4); Platelet Count 253 thou/uL (130-400); Red Blood Cell (RBC) Count 3.37 mill/uL (4.70-6.10); White Blood Cell (WBC) Count 7.6 thou/uL (4.8-10.8)
[2019-12-26 09:46] LABS: Band 8 % (5-11); Eosinophils 1 % (0-10); Lymphocytes 11 % (21-51); MDiff Complete? YES; Monocytes 8 % (0-10); Neutrophil 72 % (42-75)
[2019-12-26 09:48] LABS: Anisocytosis SLIGHT = 6-15 cells (100X) (0-5/hpf); Platelet Morphology Comment Appears Adequate
[2019-12-26 11:06] VITALS: BMI 26.3
[2019-12-26] MEDS ORDERED: CEFAZOLIN 2 GM in Premix Bag 1 BAG IVPB SCH (12:00)
[2019-12-26] MEDS: Acetaminophen 500 MG TAB PO PRN (17:04)
[2019-12-26 17:41] LABS: Bilirubin Negative (Negative); Blood, Urine Moderate (Negative); Clarity Cloudy (Clear); Glucose, Urine (Dipstick) Negative (Negative); Ketone, Urine Negative (Negative); Leukocyte Moderate (Negative); Nitrite Negative (Negative); Protein, Urine (Dipstick) > or equal to 300 mg/dL (Neg-Trace); Specific Gravity, Urine 1.025 (1.005-1.030); Urobilinogen 0.2 mg/dL (Less than 2); pH, Urine 5.5 (5.0-9.0)
[2019-12-26 17:45] LABS: Bacteria/HPF 1+ HPF (None Seen); RBC/HPF Greater than 50 HPF (0-3); Squamous Epithelial None Seen HPF (0-3); WBC/HPF Greater Than 50 HPF (0-3); Yeast-Budding Rare HPF (None Seen)
[2019-12-26 17:46] LABS: Urine Culture Reflex Yes Yes
[2019-12-27 11:31] LABS: SARS-CoV-2 MS2 Positive; SARS-CoV-2 N Gene Positive; SARS-CoV-2 S Gene Positive; SARS-CoV-2 by NAA DETECTED (NotDetected); SARS-CoV-2 orf1ab Positive
--- NOTE | 2020-01-05 06:55 | PQF ---
CLINICAL DOCUMENTATION CLARIFICATION FORM: Dear : Shikha Adrian MD Date / Time: 01/05/2020 Please exercise your independent, professional judgment in responding to the clarification form. Clinical indicators are provided on the bottom of this form for your review Please check appropriate box(es): [ X Cystitis is a complication of prolonged use of cooper catheter [ ] Cystitis is not a complication of prolonged use of cooper catheter [ ] Other diagnosis (Please specify if any) [ ] Unable to determine In addition, please specify: Present on Admission (POA): [ X] Yes [ ] No [ ] Unable to determine Physician Signature: Date/Time: For continuity of documentation, please document condition throughout progress notes and discharge summary. Thank You. To be completed by CDI/Coding staff for physician review: Present Clinical Indicators - Signs / Symptoms / Labs Results and Location in Medical Record [x] Recent history of complicated Urinary tract infection H&P on 12/09 [x] Patient had a cooper catheter that was placed prior to discharge from [facility]. H&P on 12/09 [x] Diffuse mural thickening urinary bladder, chronic versus acute cystitis. Progress notes on 12/25 [x] BPH/Neurogenic bladder requiring cooper cath. Now voiding fresh Progress notes on 12/11 [ ] Blood cultures Present Risk Factors Results and Location in Medical Record [x] Cooper catheter H&P on 12/09 [ ] Poor healing factors (advanced age / debility / obesity / chronic conditions) [ ] Recent use of antibiotics [ ] Present Treatments Results and Location in Medical Record [x] I do not see any indication for catheter replacement and this may even serve as a new focus infection H&P on 12/09 [x] We will hold off at this time and monitor urine output and if there is any concern for retention, may consider replacing H&P on 12/09 CDS/Airveyor Operator Signature: AAS Phone #: Date/Time: 01/05/2020 This is a permanent part of the Medical Record [facility]
== END 2019-12-26 21:25 | disposition short-term general hospital (02) | DRG 698 ==
LOC: MADMS 21:26
PROVIDERS: ADMIT Family Medicine; ATTEND Family Medicine
DX: T83.511A Infection and inflammatory reaction due to indwelling urethral catheter, initial encounter (principal); A41.9 Sepsis, unspecified organism; U07.1 COVID-19; I13.0 Hypertensive heart and chronic kidney disease with heart failure and stage 1 through stage 4 chronic kidney disease, or unspecified chronic kidney disease; I50.22 Chronic systolic (congestive) heart failure; M86.9 Osteomyelitis, unspecified; E11.22 Type 2 diabetes mellitus with diabetic chronic kidney disease; I25.10 Atherosclerotic heart disease of native coronary artery without angina pectoris; N18.30 Chronic kidney disease, stage 3 unspecified; L89.159 Pressure ulcer of sacral region, unspecified stage; E11.69 Type 2 diabetes mellitus with other specified complication; F17.210 Nicotine dependence, cigarettes, uncomplicated; E11.621 Type 2 diabetes mellitus with foot ulcer; E11.40 Type 2 diabetes mellitus with diabetic neuropathy, unspecified; L97.509 Non-pressure chronic ulcer of other part of unspecified foot with unspecified severity; E87.5 Hyperkalemia; E78.5 Hyperlipidemia, unspecified; I73.9 Peripheral vascular disease, unspecified; Z89.512 Acquired absence of left leg below knee; Z88.6 Allergy status to analgesic agent; Z88.8 Allergy status to other drugs, medicaments and biological substances; Z90.49 Acquired absence of other specified parts of digestive tract; Y83.9 Surgical procedure, unspecified as the cause of abnormal reaction of the patient, or of later complication, without mention of misadventure at the time of the procedure
CPT/HCPCS: 36415; 36416; 71045; 74176; 80048; 80053; 81001; 84484; 85007; 85014; 85018; 85025; 85027; 85049; 86140; 87040; 87086; 87635; J0690; J1815; J3301; J3490; U0003

== ENCOUNTER 2020-01-03 14:21 | Inpatient (IN) | payer MEDICARE, OTHER, MEDICAID ==
[2020-01-03 15:15] VITALS: BMI 23.3
[2020-01-03] MEDS ORDERED: Diabetic Tussin 200 MG/10 ML UDCUP PO PRN (17:20)
[2020-01-03] MEDS: Gabapentin 300 MG CAP PO SCH (20:59)
[2020-01-03] MEDS: Metoprolol Tartrate 25 MG TAB PO SCH (20:59)
[2020-01-03] MEDS: Apixaban 5 MG TAB PO SCH (21:00)
[2020-01-03] MEDS: Ascorbic Acid 500 mg Chewable Tablet PO SCH (21:00)
[2020-01-03] MEDS: Lantus 1000 UNITS/10 ML VIAL SC SCH (21:00)
[2020-01-03] MEDS ORDERED: Non-Formulary Item 1 EACH (Cefazolin Sodium In 0.9 % Nacl [Cefazolin 2 G/100 Ml-0.9% Nacl IVP SCH (21:00)
[2020-01-03] MEDS ORDERED: Metoprolol Tartrate 50 MG TAB PO SCH (21:00)
[2020-01-03] MEDS: CEFAZOLIN 2 GM in Premix Bag 1 BAG IVPB SCH (21:00)
[2020-01-03] MEDS: Furosemide 20 MG TAB PO SCH (21:00)
[2020-01-04] MEDS: CEFAZOLIN 2 GM in Premix Bag 1 BAG IVPB SCH ×2 (08:22→19:59)
[2020-01-04] MEDS: Zinc Sulfate 220 MG CAP PO SCH (08:22)
[2020-01-04] MEDS: Ascorbic Acid 500 mg Chewable Tablet PO SCH ×2 (08:22→19:57)
[2020-01-04] MEDS: Amlodipine 5 MG TAB PO SCH (08:22)
[2020-01-04] MEDS: Metoprolol Tartrate 25 MG TAB PO SCH ×2 (08:22→19:57)
[2020-01-04] MEDS: Cholecalciferol (Vitamin D3) 400 UNITS TAB PO SCH (08:23)
[2020-01-04] MEDS: Furosemide 20 MG TAB PO SCH ×2 (08:23→19:59)
[2020-01-04] MEDS: Dexamethasone 4 MG TAB PO SCH (08:23)
[2020-01-04] MEDS: Apixaban 5 MG TAB PO SCH ×2 (08:23→19:57)
[2020-01-04] MEDS: HumaLOG 300 UNITS/3 ML VIAL SC SCH ×3 (08:24→17:05)
[2020-01-04] MEDS: Diabetic Tussin 200 MG/10 ML UDCUP PO PRN (09:11)
--- NOTE | 2020-01-04 11:40 | HP ---
CLOTH MERCERIZER OPERATOR: Dr. Richardson in [facility]. INFECTIOUS DISEASE: Dr. Cyrus Hale in [facility]. REASON FOR ADMISSION: Readmission to [facility] to continue IV antibiotic for osteomyelitis. HISTORY OF THE PRESENT ILLNESS AND HOSPITAL COURSE: Mr. Em is a 59-year-old male with significant history of diabetes, hypertension, chronic atrial fibrillation, CHF, history of poor medical compliance and nonhealing ulcer, status post left below-knee amputation. The patient was recently diagnosed with osteomyelitis associated with MSSA bacteremia from [facility] a month ago. It was recommended at that time that patient being diabetic with persistent nonhealing right foot wound and osteomyelitis with sepsis to have surgical management at that time. However, patient refused even though he was told that antibiotics alone was not the recommended treatment. He was then placed on IV cefazolin and p.o. levofloxacin with recommendations to complete for at least 6 week course. On 12/09/2019, patient was sent to [facility] to complete IV antibiotic therapy. The patient initially did well in [facility] and tolerating the IV/oral antibiotic fairly well until 12/17/2019, patient developed atrial fibrillation with RVR with a heart rate 110 that was followed by new onset fever and lethargy. The patient's COVID PCR was ordered,with pending results, he was then transferred back to [facility] for further evaluation and management. The day after discharge, the patient's COVID PCR test came back positive. The patient was treated in [facility] with supportive medical management. Was started on IV steroid and was subsequently switched to oral. Currently on dexamethasone 6 mg p.o. daily for 5 days more. He was recommended to continue current IV and oral antibiotics under the supervision of Infectious Disease specialist, Dr. Marito Hale. His management for wound care is continued with recommendations of Dr. Richardson/marketing team lead to follow up with him on January 21, 2020, as an outpatient. The patient is readmitted back to [facility] to complete IV antibiotics that was originally scheduled up to January 14. When admitted, the patient was awake, alert, oriented, and very talkative. He is upset about the COVID restrictions for visitors at this point. He has been febrile free and denies any upper respiratory symptoms. He is still on continuous O2 per nasal cannula at 2 L. Denies chest pain, shortness of breath, pain with breathing, sputum production. He reports he is eating good, voiding freely and stooling fine. No other new issues reported at this point. PAST MEDICAL HISTORY: Uncontrolled diabetes, insulin independent; systolic congestive heart failure with recent EF of 30% to 35%; chronic kidney disease stage 3; hypertension; hyperlipidemia; history of nicotine dependence; paroxysmal atrial fibrillation; coronary artery disease; peripheral vascular disease; infected diabetic ulcer, right lateral broad-based ulcers with a small ulcer located between the 4th and 5th digits of the right foot, chronic nonhealing. ALLERGIES: HYDROCODONE AND METFORMIN. MEDICATIONS: 1. Amlodipine 5 mg p.o. daily. 2. Eliquis 5 mg p.o. b.i.d. 3. Cefazolin 2 g IV q.12 hours. 4. Dexamethasone 6 mg p.o. daily. 5. Furosemide 20 mg p.o. b.i.d. 6. Gabapentin 300 mg p.o. at bedtime. 7. NovoLog 5 units subcu t.i.d. scheduled. 8. Levaquin 750 mg p.o. daily. 9. Metoprolol 100 mg p.o. b.i.d. 10. Lantus 30 units subcutaneous at bedtime. PAST SURGICAL HISTORY: Left BKA, hernia repair, tonsillectomy, right leg skin surgery. SOCIAL HISTORY: The patient lives at home with significant other as the caregiver. He was a former smoker. He denies alcohol or illicit drug use. REVIEW OF SYSTEMS: GENERAL: Patient denies fever, chills, night sweats, improving fatigue. Reports general weakness. HEENT: Denies acute visual changes, hearing changes, or cold symptoms. CARDIOVASCULAR: Denies chest pain, palpitation, dyspnea on exertion, paroxysmal nocturnal dyspnea. Reports intermittent leg swelling, none at this time. RESPIRATORY: As per HPI. ABDOMEN: Denies nausea, vomiting, abdominal pain. Reports chronic loose stools. GEINTOURINARY: Denies dysuria, hematuria, frequency, frequency, urgency, and gross hematuria. SKIN: As per HPI. PSYCHIATRY: Denies hallucinations, suicidal thoughts, ideations, or plans. NEUROLOGIC: Denies numbness, tingling sensation, focal paralysis. Gait is unsteady secondary to left below-knee amputation. PHYSICAL EXAMINATION: VITAL SIGNS: Blood pressure 126/73, temperature 97.4, pulse 68, respirations 20, O2 saturation 98% on 2 L per nasal cannula. Weight 153 pounds and 5 ounces, height 5 feet 8 inches. GENERAL: The patient is awake, alert, and oriented x3. Not in distress. Comfortable on exam. HEENT: Normocephalic, atraumatic. PERRL. Intact EOM. Anicteric sclerae. Oral mucosa is moist. No oral lesions. NECK: Supple. No LAD. Flat JVD. CHEST: Normal excursion. Nonlabored breathing. LUNGS: Clear to auscultation bilaterally. CARDIAC: RRR. Normal S1 and S2. No murmurs. ABDOMEN: Flat, soft. Normoactive bowel sounds. Nondistended, nontender. No rebound or guarding. Negative CVA tenderness bilaterally. EXTREMITIES: Status post left BKA with intact and healed stump. Right lower extremity with broad based chronic ulcer to the lateral aspect of the right foot and a small ulceration between the 4th and the 5th digits, right foot. No edema. No cyanosis. See pictures for details. PSYCHIATRIC:Stef, happy, interactive, good eye contact. Appropriate mood and affect. ASSESSMENT AND PLAN: 1. Osteomyelitis of the right foot for medical management only requiring long- term course of IV and oral antibiotic for 6 weeks. 2. History of MSSA bacteremia. 3. COVID Pneumonia. 4. Acute respiratory failure with hypoxia, 02 requiring. 5. Postviral debility. 6. Hypertension. 7. Systolic congestive heart failure, compensated. 8. Paroxysmal atrial fibrillation. 9. Neuropathic pain. 10 .Diabetes, insulin dependent, uncontrolled. 11. Status post left BKA secondary to nonhealing ulcer/osteomyelitis. 12. Abnormality of gait secondary to imbalance. 13. Former smoker. 14. Continuous 0xygen supplement. PLAN: 1. The patient is admitted to [facility] to continue IV and oral antibiotic as directed until January 15, 2020. We will continue routine wound care as previously ordered by marketing team lead. 2. Heart healthy diet. 3. PT, OT eval and treat. 4. Continue all current medications as modified per list. Beta-magdiel was originally at low dose 25 mg p.o. b.i.d. upon discharge. Current blood pressure is on the low side. Current transfer order of metoprolol at 100 mg p.o. b.i.d. for unknown reason. I will put back low dose of beta-magdiel to the original prescribed dose secondary to low blood pressure at this time. Consider titrating/adjusting the medication appropriately based on the patient's blood pressure. We will add nutritional supplement including zinc sulfate, vitamin C and vitamin D. We will continue oral steroid for 5 more days to complete 10 day course. Accu-Chek q.a.c. and at bedtime. Hypoglycemic precautions. To complete oral a nd IV antibiotic as scheduled. Routine blood works including CBC, CMP,and CRP weekly. 5. Follow up with marketing team lead on January 20 as scheduled. 6. Follow up with Infectious Disease specialist, Dr. Cyrus Hale 1 week post discharge. 7. DVT prophylaxis. The patient is already on anticoagulant/Eliquis. 8. PPI prophylaxis with Protonix. 9. Isolation precaution per hospital protocol. 10. .Further recommendations depending on the hospital course. 11. Code status, the patient reports FULL CODE. Job ID: [id number] MTDD
[2020-01-04] MEDS: Gabapentin 300 MG CAP PO SCH (19:57)
[2020-01-04] MEDS: Lantus 1000 UNITS/10 ML VIAL SC SCH (20:01)
[2020-01-05] MEDS: Zinc Sulfate 220 MG CAP PO SCH (08:45)
[2020-01-05] MEDS: Dexamethasone 4 MG TAB PO SCH (08:45)
[2020-01-05] MEDS: Apixaban 5 MG TAB PO SCH ×2 (08:46→22:14)
[2020-01-05] MEDS: Amlodipine 5 MG TAB PO SCH (08:47)
[2020-01-05] MEDS: Cholecalciferol (Vitamin D3) 400 UNITS TAB PO SCH (08:47)
[2020-01-05] MEDS: Furosemide 20 MG TAB PO SCH ×2 (08:47→22:22)
[2020-01-05] MEDS: Ascorbic Acid 500 mg Chewable Tablet PO SCH ×2 (08:47→22:14)
[2020-01-05] MEDS: Metoprolol Tartrate 25 MG TAB PO SCH ×2 (08:47→22:22)
[2020-01-05] MEDS: HumaLOG 300 UNITS/3 ML VIAL SC SCH ×3 (08:48→17:13)
[2020-01-05] MEDS: CEFAZOLIN 2 GM in Premix Bag 1 BAG IVPB SCH ×2 (08:50→22:14)
[2020-01-05] MEDS: Lantus 1000 UNITS/10 ML VIAL SC SCH (22:07)
[2020-01-05] MEDS: Gabapentin 300 MG CAP PO SCH (22:22)
[2020-01-06 06:04] LABS: Hemoglobin 10.9 g/dL (14.0-18.0); Platelet Count 184 thou/uL (130-400)
[2020-01-06] MEDS: HumaLOG 300 UNITS/3 ML VIAL SC SCH ×3 (09:45→17:40)
[2020-01-06] MEDS: Apixaban 5 MG TAB PO SCH ×2 (09:52→21:31)
[2020-01-06] MEDS: Cholecalciferol (Vitamin D3) 400 UNITS TAB PO SCH (09:52)
[2020-01-06] MEDS: CEFAZOLIN 2 GM in Premix Bag 1 BAG IVPB SCH ×2 (09:52→21:27)
[2020-01-06] MEDS: Dexamethasone 4 MG TAB PO SCH (09:52)
[2020-01-06] MEDS: Ascorbic Acid 500 mg Chewable Tablet PO SCH ×2 (09:52→21:30)
[2020-01-06] MEDS: Zinc Sulfate 220 MG CAP PO SCH (09:53)
[2020-01-06] MEDS: Amlodipine 5 MG TAB PO SCH (09:53)
[2020-01-06] MEDS: Metoprolol Tartrate 25 MG TAB PO SCH ×2 (09:53→21:30)
[2020-01-06] MEDS: Furosemide 20 MG TAB PO SCH ×2 (09:53→21:30)
[2020-01-06] MEDS: Gabapentin 300 MG CAP PO SCH (21:29)
[2020-01-06] MEDS: Lantus 1000 UNITS/10 ML VIAL SC SCH (21:31)
[2020-01-07] MEDS: HumaLOG 300 UNITS/3 ML VIAL SC SCH ×3 (09:26→17:25)
[2020-01-07] MEDS: Metoprolol Tartrate 25 MG TAB PO SCH ×2 (09:28→20:18)
[2020-01-07] MEDS: Apixaban 5 MG TAB PO SCH ×2 (09:28→20:14)
[2020-01-07] MEDS: Ascorbic Acid 500 mg Chewable Tablet PO SCH ×2 (09:28→20:15)
[2020-01-07] MEDS: Amlodipine 5 MG TAB PO SCH (09:28)
[2020-01-07] MEDS: Dexamethasone 4 MG TAB PO SCH (09:28)
[2020-01-07] MEDS: Furosemide 20 MG TAB PO SCH ×2 (09:28→20:16)
[2020-01-07] MEDS: Cholecalciferol (Vitamin D3) 400 UNITS TAB PO SCH (09:29)
[2020-01-07] MEDS: Zinc Sulfate 220 MG CAP PO SCH (09:29)
[2020-01-07] MEDS: CEFAZOLIN 2 GM in Premix Bag 1 BAG IVPB SCH ×2 (09:29→21:00)
[2020-01-07] MEDS: Gabapentin 300 MG CAP PO SCH (20:16)
[2020-01-07] MEDS: Lantus 1000 UNITS/10 ML VIAL SC SCH (20:46)
[2020-01-08] MEDS: HumaLOG 300 UNITS/3 ML VIAL SC SCH ×3 (09:56→16:55)
[2020-01-08] MEDS: Dexamethasone 4 MG TAB PO SCH (09:56)
[2020-01-08] MEDS: Cholecalciferol (Vitamin D3) 400 UNITS TAB PO SCH (09:57)
[2020-01-08] MEDS: Zinc Sulfate 220 MG CAP PO SCH (09:57)
[2020-01-08] MEDS: Furosemide 20 MG TAB PO SCH ×2 (09:57→20:48)
[2020-01-08] MEDS: Amlodipine 5 MG TAB PO SCH (09:57)
[2020-01-08] MEDS: Ascorbic Acid 500 mg Chewable Tablet PO SCH ×2 (09:57→20:47)
[2020-01-08] MEDS: Metoprolol Tartrate 25 MG TAB PO SCH ×2 (09:57→20:49)
[2020-01-08] MEDS: Apixaban 5 MG TAB PO SCH ×2 (09:58→20:46)
[2020-01-08] MEDS: CEFAZOLIN 2 GM in Premix Bag 1 BAG IVPB SCH ×2 (09:58→20:44)
[2020-01-08] MEDS: Gabapentin 300 MG CAP PO SCH (20:46)
[2020-01-08] MEDS: Lantus 1000 UNITS/10 ML VIAL SC SCH (20:49)
[2020-01-09 05:30] LABS: Hemoglobin 9.9 g/dL (14.0-18.0); Mean Corpuscular HGB CONC 30.3 g/dL (32.0-36.0); Mean Corpuscular Hemoglobin 26.4 pg (27.0-31.0); Red Blood Cell (RBC) Count 3.75 mill/uL (4.70-6.10); White Blood Cell (WBC) Count 9.9 thou/uL (4.8-10.8)
[2020-01-09 05:31] LABS: Platelet Count 155 thou/uL (130-400); RBC Distribution Width 14.9 % (11.5-14.5)
[2020-01-09 05:32] LABS: Mean Corpuscular Volume 87.1 fL (78.0-98.0)
[2020-01-09 05:33] LABS: #Lymphocytes 0.4 thou/uL (1.20-3.40); #Monocytes 0.4 thou/uL (0.11-0.59); %Basophils 0.4 % (0.0-1.0); %Eosinophils 0.1 % (0.0-10.0); %Lymphocytes 4.2 % (21.0-51.0); %Monocytes 4.1 % (0.0-10.0); %Neutrophils 91.3 % (42.0-75.0)
[2020-01-09 05:36] LABS: ALT (SGPT) Less than 7 U/L (8-55); AST (SGOT) 12 U/L (5-34); Albumin 2.7 g/dL (3.5-5.0); Alkaline Phosphatase 130 U/L (40-110); Anion Gap 17 mmol/L (10-20); BUN (Urea Nitrogen) 77 mg/dL (8.4-25.7); Bilirubin, Total Less than 0.2 mg/dL (0.2-1.2); Calc. Creatinine Clearance 31 mL/min (70-130); Calcium 6.9 mg/dL (7.8-10.44); Carbon Dioxide 15 mmol/L (22-29); Estimated GFR-MDRD 26; Glucose 453 mg/dL (70-105); Potassium 3.9 mmol/L (3.5-5.1); Protein, Total 5.7 g/dL (6.0-8.3); Sodium 133 mmol/L (136-145)
[2020-01-09 06:21] LABS: Chloride 105 mmol/L (98-107)
[2020-01-09] MEDS: HumaLOG 300 UNITS/3 ML VIAL SC SCH ×3 (08:27→17:04)
[2020-01-09] MEDS: Zinc Sulfate 220 MG CAP PO SCH (08:28)
[2020-01-09] MEDS: Metoprolol Tartrate 25 MG TAB PO SCH ×2 (08:28→20:06)
[2020-01-09] MEDS: Ascorbic Acid 500 mg Chewable Tablet PO SCH ×2 (08:28→20:05)
[2020-01-09] MEDS: Amlodipine 5 MG TAB PO SCH (08:29)
[2020-01-09] MEDS: Apixaban 5 MG TAB PO SCH ×2 (08:29→20:06)
[2020-01-09] MEDS: Cholecalciferol (Vitamin D3) 400 UNITS TAB PO SCH (08:29)
[2020-01-09] MEDS: Furosemide 20 MG TAB PO SCH ×2 (08:30→20:06)
[2020-01-09] MEDS: Dexamethasone 4 MG TAB PO SCH (08:30)
[2020-01-09] MEDS: CEFAZOLIN 2 GM in Premix Bag 1 BAG IVPB SCH ×2 (08:32→20:04)
[2020-01-09] MEDS: Gabapentin 300 MG CAP PO SCH (20:04)
[2020-01-09] MEDS: Lantus 1000 UNITS/10 ML VIAL SC SCH (20:06)
[2020-01-10] MEDS: HumaLOG 300 UNITS/3 ML VIAL SC SCH ×3 (08:18→17:11)
[2020-01-10] MEDS: CEFAZOLIN 2 GM in Premix Bag 1 BAG IVPB SCH ×2 (08:50→21:36)
[2020-01-10] MEDS: Diabetic Tussin 200 MG/10 ML UDCUP PO PRN ×2 (08:51→15:59)
[2020-01-10] MEDS: Apixaban 5 MG TAB PO SCH ×2 (08:52→21:34)
[2020-01-10] MEDS: Amlodipine 5 MG TAB PO SCH (08:52)
[2020-01-10] MEDS: Cholecalciferol (Vitamin D3) 400 UNITS TAB PO SCH (08:52)
[2020-01-10] MEDS: Zinc Sulfate 220 MG CAP PO SCH (08:52)
[2020-01-10] MEDS: Furosemide 20 MG TAB PO SCH ×2 (08:52→21:34)
[2020-01-10] MEDS: Metoprolol Tartrate 25 MG TAB PO SCH ×2 (08:52→21:35)
[2020-01-10] MEDS: Ascorbic Acid 500 mg Chewable Tablet PO SCH ×2 (08:52→21:34)
[2020-01-10] MEDS: Gabapentin 300 MG CAP PO SCH (21:35)
[2020-01-10] MEDS: Lantus 1000 UNITS/10 ML VIAL SC SCH (21:36)
[2020-01-11] MEDS: HumaLOG 300 UNITS/3 ML VIAL SC SCH ×3 (07:38→17:17)
[2020-01-11] MEDS: Furosemide 20 MG TAB PO SCH ×2 (08:58→21:22)
[2020-01-11] MEDS: Ascorbic Acid 500 mg Chewable Tablet PO SCH ×2 (08:58→21:22)
[2020-01-11] MEDS: Amlodipine 5 MG TAB PO SCH (08:58)
[2020-01-11] MEDS: Apixaban 5 MG TAB PO SCH ×2 (08:59→21:23)
[2020-01-11] MEDS: Zinc Sulfate 220 MG CAP PO SCH (08:59)
[2020-01-11] MEDS: Metoprolol Tartrate 25 MG TAB PO SCH ×2 (08:59→21:22)
[2020-01-11] MEDS: CEFAZOLIN 2 GM in Premix Bag 1 BAG IVPB SCH ×2 (09:02→21:51)
[2020-01-11] MEDS: Cholecalciferol (Vitamin D3) 400 UNITS TAB PO SCH (12:19)
[2020-01-11] MEDS ORDERED: BIOFREEZE TOP SCH (19:45)
[2020-01-11] MEDS ORDERED: Acetaminophen 325 MG TAB PO SCH (19:45)
[2020-01-11] MEDS ORDERED: Insulin Glargine 40 UNITS in Pre-Filled Syringe 1 EACH SC SCH (21:00)
[2020-01-11] MEDS: Gabapentin 300 MG CAP PO SCH (21:23)
[2020-01-11] MEDS: Lantus 1000 UNITS/10 ML VIAL SC SCH (21:46)
[2020-01-12] MEDS: Acetaminophen 325 MG TAB PO PRN ×3 (01:31→20:48)
[2020-01-12] MEDS: Cholecalciferol (Vitamin D3) 400 UNITS TAB PO SCH (09:06)
[2020-01-12] MEDS: Ascorbic Acid 500 mg Chewable Tablet PO SCH ×2 (09:06→20:49)
[2020-01-12] MEDS: Metoprolol Tartrate 25 MG TAB PO SCH ×2 (09:06→20:49)
[2020-01-12] MEDS: Amlodipine 5 MG TAB PO SCH (09:06)
[2020-01-12] MEDS: Apixaban 5 MG TAB PO SCH ×2 (09:07→20:49)
[2020-01-12] MEDS: Furosemide 20 MG TAB PO SCH ×2 (09:07→20:49)
[2020-01-12] MEDS: Zinc Sulfate 220 MG CAP PO SCH (09:07)
[2020-01-12] MEDS: CEFAZOLIN 2 GM in Premix Bag 1 BAG IVPB SCH ×2 (09:08→20:47)
[2020-01-12] MEDS: HumaLOG 300 UNITS/3 ML VIAL SC SCH ×3 (09:09→16:53)
[2020-01-12 20:03] LABS: ALT (SGPT) Less than 7 U/L (8-55); AST (SGOT) 14 U/L (5-34); Albumin 2.4 g/dL (3.5-5.0); Alkaline Phosphatase 119 U/L (40-110); Anion Gap 17 mmol/L (10-20); BUN (Urea Nitrogen) 82 mg/dL (8.4-25.7); Bilirubin, Total 0.2 mg/dL (0.2-1.2); Calc. Creatinine Clearance 34 mL/min (70-130); Calcium 6.7 mg/dL (7.8-10.44); Carbon Dioxide 13 mmol/L (22-29); Chloride 113 mmol/L (98-107); Estimated GFR-MDRD 28; Globulin 2.9 g/dL (2.4-3.5); Glucose 81 mg/dL (70-105); Potassium 3.4 mmol/L (3.5-5.1); Protein, Total 5.3 g/dL (6.0-8.3); Sodium 140 mmol/L (136-145)
[2020-01-12 20:04] LABS: #Basophils 0.1 thou/uL (0.0-0.2); #Eosinphils 0.1 thou/uL (0.0-0.7); #Lymphocytes 0.7 thou/uL (1.20-3.40); #Monocytes 0.6 thou/uL (0.11-0.59); #Neutrophils 8.4 thou/uL (1.40-6.50); %Basophils 1.1 % (0.0-1.0); %Eosinophils 0.8 % (0.0-10.0); %Lymphocytes 7.2 % (21.0-51.0); Hemoglobin 8.2 g/dL (14.0-18.0); Hypochromia SLIGHT = 6-15 cells (100X) (0-5/hpf); Large Platelets SLIGHT; MDiff Complete? YES; Mean Corpuscular HGB CONC 32.6 g/dL (32.0-36.0); Mean Corpuscular Hemoglobin 27.7 pg (27.0-31.0); Mean Corpuscular Volume 85.1 fL (78.0-98.0); Mean Platelet Volume 11.5 fL (7.4-10.4); Platelet Count 119 thou/uL (130-400); Platelet Morphology Comment Appears Decreased; RBC Distribution Width 15.4 % (11.5-14.5); Red Blood Cell (RBC) Count 2.97 mill/uL (4.70-6.10); White Blood Cell (WBC) Count 9.9 thou/uL (4.8-10.8)
--- NOTE | 2020-01-12 20:07 | RAD ---
PORTABLE UPRIGHT FRONTAL CHEST RADIOGRAPH: 01/12/20 COMPARISON: 12/26/19 HISTORY: Chest pain. FINDINGS: Nonspecific interstitial and ground glass opacity noted bilaterally. Right upper extremity PICC prese nt, distal tip overlying the region of the proximal right atrium. No pneumothorax or lobar consolidat ion. There is the suggestion of possible reticulonodular density in both lungs, right greater than le ft. IMPRESSION: Interstitial and ground glass opacity with possible reticulonodular densities. These findings are new when compared to 08/25/19 and progressed since the 12/26/19 exam. Findings may be related to nonspeci fic infectious pneumonitis, including COVID 19. Clinical correlation and follow-up imaging following treatment to document resolution advised. POS: REGGIE
[2020-01-12 20:21] LABS: CKMB 4.3 ng/mL (0-6.6)
[2020-01-12] MEDS: Diabetic Tussin 200 MG/10 ML UDCUP PO PRN (20:47)
[2020-01-12] MEDS: Gabapentin 300 MG CAP PO SCH (20:49)
[2020-01-12] MEDS: Lantus 1000 UNITS/10 ML VIAL SC SCH (21:06)
[2020-01-13 03:13] LABS: Troponin I 0.026 ng/mL (< 0.028)
[2020-01-13] MEDS: Acetaminophen 325 MG TAB PO PRN ×3 (06:38→20:10)
[2020-01-13 08:24] LABS: Troponin I 0.025 ng/mL (< 0.028)
[2020-01-13 08:45] LABS: Anion Gap 18 mmol/L (10-20); BUN (Urea Nitrogen) 86 mg/dL (8.4-25.7); Calc. Creatinine Clearance 31 mL/min (70-130); Calcium 6.9 mg/dL (7.8-10.44); Carbon Dioxide 13 mmol/L (22-29); Chloride 113 mmol/L (98-107); Estimated GFR-MDRD 26; Glucose 70 mg/dL (70-105); Potassium 3.8 mmol/L (3.5-5.1); Sodium 140 mmol/L (136-145)
[2020-01-13] MEDS: Amlodipine 5 MG TAB PO SCH (08:54)
[2020-01-13] MEDS: Cholecalciferol (Vitamin D3) 400 UNITS TAB PO SCH (08:54)
[2020-01-13] MEDS: Zinc Sulfate 220 MG CAP PO SCH (08:54)
[2020-01-13] MEDS: Metoprolol Tartrate 25 MG TAB PO SCH ×2 (08:54→20:11)
[2020-01-13] MEDS: Furosemide 20 MG TAB PO SCH ×2 (08:54→20:11)
[2020-01-13] MEDS: Ascorbic Acid 500 mg Chewable Tablet PO SCH ×2 (08:54→20:11)
[2020-01-13] MEDS: Apixaban 5 MG TAB PO SCH ×2 (08:54→20:12)
[2020-01-13] MEDS: CEFAZOLIN 2 GM in Premix Bag 1 BAG IVPB SCH ×2 (08:55→20:12)
[2020-01-13] MEDS: HumaLOG 300 UNITS/3 ML VIAL SC SCH (09:14)
[2020-01-13] MEDS: guaiFENesin/DM ER PO SCH ×2 (09:20→20:11)
[2020-01-13] MEDS: Ipratropium/Albuterol Sulfate 4 GM AER IH PRN (16:18)
[2020-01-13] MEDS ORDERED: Dextrose 5% in Water 1,000 ML IV PRN (17:15)
[2020-01-13] MEDS ORDERED: Dextrose 50% Abboject 50 ML SYRINGE IVP PRN (17:15)
[2020-01-13] MEDS: HumaLOG 300 UNITS/3 ML VIAL SC PRN (17:48)
[2020-01-13] MEDS: Gabapentin 300 MG CAP PO SCH (20:11)
[2020-01-13] MEDS: Lantus 1000 UNITS/10 ML VIAL SC SCH (20:17)
[2020-01-14] MEDS: Acetaminophen 325 MG TAB PO PRN ×2 (04:35→23:01)
[2020-01-14] MEDS: Metoprolol Tartrate 25 MG TAB PO SCH ×2 (08:55→21:18)
[2020-01-14] MEDS: Amlodipine 5 MG TAB PO SCH (08:55)
[2020-01-14] MEDS: guaiFENesin/DM ER PO SCH ×2 (08:55→21:18)
[2020-01-14] MEDS: Apixaban 5 MG TAB PO SCH ×2 (08:56→21:19)
[2020-01-14] MEDS: Cholecalciferol (Vitamin D3) 400 UNITS TAB PO SCH (08:56)
[2020-01-14] MEDS: Zinc Sulfate 220 MG CAP PO SCH (08:56)
[2020-01-14] MEDS: Ascorbic Acid 500 mg Chewable Tablet PO SCH ×2 (08:56→21:18)
[2020-01-14] MEDS: Furosemide 20 MG TAB PO SCH ×2 (08:56→21:18)
[2020-01-14] MEDS: CEFAZOLIN 2 GM in Premix Bag 1 BAG IVPB SCH ×2 (08:57→21:16)
[2020-01-14] MEDS: Ipratropium/Albuterol Sulfate 4 GM AER IH PRN (09:03)
[2020-01-14] MEDS ORDERED: Gabapentin 100 MG CAP PO SCH (11:00)
[2020-01-14] MEDS: HumaLOG 300 UNITS/3 ML VIAL SC PRN (17:23)
[2020-01-14] MEDS: Gabapentin 300 MG CAP PO SCH (21:18)
[2020-01-14] MEDS: Lantus 1000 UNITS/10 ML VIAL SC SCH (21:23)
[2020-01-15] MEDS: Ipratropium/Albuterol Sulfate 4 GM AER IH PRN ×2 (02:28→16:59)
[2020-01-15 05:12] LABS: #Basophils 0.1 thou/uL (0.0-0.2); #Eosinphils 0.1 thou/uL (0.0-0.7); #Lymphocytes 0.6 thou/uL (1.20-3.40); #Monocytes 0.7 thou/uL (0.11-0.59); #Neutrophils 7.7 thou/uL (1.40-6.50); %Basophils 0.6 % (0.0-1.0); %Eosinophils 1.3 % (0.0-10.0); %Lymphocytes 6.5 % (21.0-51.0); %Monocytes 7.1 % (0.0-10.0); %Neutrophils 84.5 % (42.0-75.0); Hemoglobin 8.1 g/dL (14.0-18.0); Mean Corpuscular HGB CONC 30.5 g/dL (32.0-36.0); Mean Corpuscular Hemoglobin 26.3 pg (27.0-31.0); Mean Corpuscular Volume 86.3 fL (78.0-98.0); Mean Platelet Volume 11.1 fL (7.4-10.4); Platelet Count 119 thou/uL (130-400); RBC Distribution Width 15.3 % (11.5-14.5); Red Blood Cell (RBC) Count 3.08 mill/uL (4.70-6.10); White Blood Cell (WBC) Count 9.2 thou/uL (4.8-10.8)
[2020-01-15 05:15] LABS: ALT (SGPT) Less than 7 U/L (8-55); AST (SGOT) 14 U/L (5-34); Albumin 2.5 g/dL (3.5-5.0); Alkaline Phosphatase 223 U/L (40-110); Anion Gap 18 mmol/L (10-20); BUN (Urea Nitrogen) 86 mg/dL (8.4-25.7); Bilirubin, Total 0.2 mg/dL (0.2-1.2); CRP (Inflammatory) 19.19 mg/dL (= or < 0.5); Calc. Creatinine Clearance 24 mL/min (70-130); Calcium 7.1 mg/dL (7.8-10.44); Carbon Dioxide 13 mmol/L (22-29); Chloride 113 mmol/L (98-107); Estimated GFR-MDRD 19; Globulin 3.1 g/dL (2.4-3.5); Glucose 120 mg/dL (70-105); Potassium 3.6 mmol/L (3.5-5.1); Protein, Total 5.6 g/dL (6.0-8.3); Sodium 140 mmol/L (136-145)
[2020-01-15] MEDS: CEFAZOLIN 2 GM in Premix Bag 1 BAG IVPB SCH (07:55)
[2020-01-15] MEDS: Furosemide 20 MG TAB PO SCH (07:55)
[2020-01-15] MEDS: Gabapentin 100 MG CAP PO SCH (07:55)
[2020-01-15] MEDS: Metoprolol Tartrate 25 MG TAB PO SCH ×2 (07:55→21:08)
[2020-01-15] MEDS: Zinc Sulfate 220 MG CAP PO SCH (07:56)
[2020-01-15] MEDS: Amlodipine 5 MG TAB PO SCH (07:56)
[2020-01-15] MEDS: Apixaban 5 MG TAB PO SCH ×2 (07:56→21:08)
[2020-01-15] MEDS: Ascorbic Acid 500 mg Chewable Tablet PO SCH ×2 (07:56→21:07)
[2020-01-15] MEDS: Cholecalciferol (Vitamin D3) 400 UNITS TAB PO SCH (07:56)
[2020-01-15] MEDS: guaiFENesin/DM ER PO SCH ×2 (07:56→21:07)
[2020-01-15] MEDS: HumaLOG 300 UNITS/3 ML VIAL SC PRN ×3 (11:57→21:12)
[2020-01-15] MEDS: Gabapentin 300 MG CAP PO SCH (21:07)
[2020-01-15] MEDS: Lantus 1000 UNITS/10 ML VIAL SC SCH (21:11)
[2020-01-16 07:07] LABS: Anion Gap 17 mmol/L (10-20); BUN (Urea Nitrogen) 86 mg/dL (8.4-25.7); Calc. Creatinine Clearance 28 mL/min (70-130); Calcium 7.2 mg/dL (7.8-10.44); Carbon Dioxide 14 mmol/L (22-29); Chloride 113 mmol/L (98-107); Estimated GFR-MDRD 23; Glucose 126 mg/dL (70-105); Potassium 3.6 mmol/L (3.5-5.1); Sodium 140 mmol/L (136-145)
[2020-01-16 08:55] VITALS: BP 113/67; TEMP 97.6
[2020-01-16] MEDS: Gabapentin 100 MG CAP PO SCH (08:57)
[2020-01-16] MEDS: guaiFENesin/DM ER PO SCH (08:58)
[2020-01-16] MEDS: Ascorbic Acid 500 mg Chewable Tablet PO SCH (08:58)
[2020-01-16] MEDS: Apixaban 5 MG TAB PO SCH (08:58)
[2020-01-16] MEDS: Cholecalciferol (Vitamin D3) 400 UNITS TAB PO SCH (08:58)
[2020-01-16] MEDS: Zinc Sulfate 220 MG CAP PO SCH (08:58)
[2020-01-16] MEDS: Amlodipine 5 MG TAB PO SCH (08:58)
[2020-01-16] MEDS ORDERED: Furosemide 20 MG TAB PO SCH (09:00)
[2020-01-16] MEDS: Metoprolol Tartrate 25 MG TAB PO SCH (10:31)
[2020-01-16] MEDS ORDERED: Apixaban 2.5 MG TAB PO SCH (21:00)
--- NOTE | 2020-01-24 14:53 | DIS ---
DATE OF ADMISSION: 01/03/2020 DATE OF DISCHARGE: 01/16/2020 REASON FOR ADMISSION: To complete 6-week course of IV antibiotic in [facility] for osteomyelitis. ATTENDING/PCP: Dr. Adrian. YARN WRAPPER: Dr. Richardson in [facility]. INFECTIOUS DISEASE: Dr. Cyrus Hale in [facility]. DISCHARGE DIAGNOSES: 1. Osteomyelitis of the right foot, for medical management only per the patient's request, requiring long-term course of IV and oral antibiotics for 6 weeks per ID recommendations, completed. 2. Non healing wound ulcer, right foot. 3. History of MSSA bacteremia. 4. History of COVID pneumonia. 5. History of acute respiratory failure with hypoxia, O2 requiring. 6. Postviral debility. 7. Abnormality of gait secondary to imbalance. 8. Status post left below-knee amputation,secondary to nonhealing ulcer/osteomyelitis. 9.On continuous hoe 02. SECONDARY DIAGNOSES: Hypertension; systolic congestive heart failure, compensated; paroxysmal atrial fibrillation;on snf use of anticoagulant, neuropathic pain; diabetes, poorly controlled, insulin dependent; former smoker; chronic anemia; and chronic kidney disease, stage 3. DISPOSITION: Home. CONDITION ON DISCHARGE: Stable. MEDICATIONS: 1. Eliquis 5 mg p.o. b.i.d. 2. Gabapentin 300 mg p.o. at bedtime. 3. Lantus 40 units subcu at bedtime. 4. Metoprolol 25 mg p.o. b.i.d. 5. Amlodipine 5 mg p.o. daily. 6. Ascorbic acid 500 mg p.o. b.i.d. 7. Zinc sulfate 220 mg p.o. daily. 8. Acetaminophen 650 mg p.o. q.6. 9. Furosemide 20 mg p.o. daily. DISCHARGE INSTRUCTIONS: 1. Diet: AHA 2000 kilocalorie ADA. 2. Activity: Bed-bound. 3. Fall precautions. 4. Follow up with Dr. Richardson on 01/25 at 2:30, at the same time with Dr. Hale, infectious disease, on 01/25 at 2:[address] Richardson's appointment. 5. Follow up with Dr. Mancera in 1 to 2 weeks for cardiology care. 6. Follow up with Dr. Adrian, PCP, in 1 week. 6. Refer to [facility] per request for half-way,PT, OT, and wound care. HISTORY OF PRESENT ILLNESS AND HOSPITAL COURSE: Mr. Em is a 59-year-old male with significant history of diabetes, hypertension, chronic atrial fibrillation, CHF, history of poor medical compliance, and nonhealing ulcer, status post left [id number] amputation. The patient has a chronic nonhealing ulcer on the right foot, which was conservatively managed under the care of [facility]. The patient was recently diagnosed with osteomyelitis associated with MSSA bacteremia at [facility] in December 2019, and it was recommended that time that patient being a diabetic with persistent nonhealing right foot wound and osteomyelitis with sepsis for surgical management at that time. The patient refused and opted for antibiotic alone, which was not the recommended treatment. He was then placed on IV cefazolin and p.o. levofloxacin with recommendations to complete at least a 6-week course by his Infectious Disease specialist, Dr. Cyrus Hale from [facility]. The patient was subsequently transferred to [facility] to complete IV antibiotic therapy on 12/09/2019. The patient initially did well in [facility], tolerating both IV and oral antibiotics until 12/17/2019 when he developed an acute febrile illness. This was associated with atrial fibrillation with RVR. The patient was then diagnosed with COVID infection and was transferred back to [facility] for appropriate management. After receiving appropriate treatment in [facility], patient was sent back to [facility] on 01/03/2020 with improved symptoms. He was then recommended to complete his oral dexamethasone at that time for 5 more days and continue current management of IV cefazolin and p.o. Levaquin as previously ordered to complete the 6-week course medical regimen.He wound on the right foot, showed some improvement in a very slow manner. At this time, his rehab course was unremarkable. There were no significant complications of respiratory symptoms noted. He continued on O2 at 2 L per nasal cannula. His blood sugar has markedly worsened during the time that he was on oral steroid. His Lantus was titrated appropriately and blood glucose has stabilized. Prior to discharge, his insulin was maintained at 40 units of Lantus daily. On 01/15, the patient was discharged in a stable condition. He was highly recommended to go back to the [facility] for re-evaluation of the wound and to the Infectious Disease thereafter. Appointments were made and arranged for the patient prior to discharge. He was also recommended to continue his therapy with home health with the hope that the patient will be able to use his leg prosthetics and eventually ambulates. Prior to discharge, the patient remained bed-bound and needs max assist for transfers. LABORATORY DATA: Labs prior to discharge, 01/15/2020; hemoglobin of 8.1, WBC 9.2, hematocrit 26.5, platelets 119 . Sodium 140, potassium 3.6, BUN 86, creatinine 2.89, estimated GFR 23. PHYSICAL EXAMINATION: VITAL SIGNS: Prior to discharge; blood pressure 113/67, temperature 97.6, pulse 75, respirations 20, O2 saturation 96% at room air. Weight 155 and 14 ounces. Height 5 feet 8 inches. Time spent on this discharge, 33 minutes in examining the patient coordinating care, educating the patient. Job ID: [id number]
== END 2020-01-16 18:45 | disposition home or self-care (01) | DRG 637 ==
LOC: MADMS 14:22
PROVIDERS: ADMIT Family Medicine; ATTEND Family Medicine
DX: E11.69 Type 2 diabetes mellitus with other specified complication (principal); J96.01 Acute respiratory failure with hypoxia; J12.89 Other viral pneumonia; U07.1 COVID-19; I50.22 Chronic systolic (congestive) heart failure; I13.0 Hypertensive heart and chronic kidney disease with heart failure and stage 1 through stage 4 chronic kidney disease, or unspecified chronic kidney disease; M86.8X7 Other osteomyelitis, ankle and foot; N18.30 Chronic kidney disease, stage 3 unspecified; E78.5 Hyperlipidemia, unspecified; I48.0 Paroxysmal atrial fibrillation; I25.10 Atherosclerotic heart disease of native coronary artery without angina pectoris; R53.81 Other malaise; Z89.512 Acquired absence of left leg below knee; Z90.49 Acquired absence of other specified parts of digestive tract; Z87.891 Personal history of nicotine dependence; E11.65 Type 2 diabetes mellitus with hyperglycemia; R26.89 Other abnormalities of gait and mobility; Z88.8 Allergy status to other drugs, medicaments and biological substances; Z88.6 Allergy status to analgesic agent; Z79.01 Long term (current) use of anticoagulants; D64.9 Anemia, unspecified; L97.519 Non-pressure chronic ulcer of other part of right foot with unspecified severity; Z79.4 Long term (current) use of insulin; Z79.899 Other long term (current) drug therapy; Z90.89 Acquired absence of other organs
CPT/HCPCS: 36415; 36416; 71045; 80048; 80053; 82553; 84484; 85014; 85018; 85025; 85049; 86140; J0690; J1815; J8540

== ENCOUNTER 2020-01-22 16:38 | Emergency (ER) | payer MEDICARE, OTHER, MEDICAID | END 2020-01-22 19:53 | disposition E | LOC: MADERS 16:38 | DX: I46.9 Cardiac arrest, cause unspecified (principal); E78.5 Hyperlipidemia, unspecified; E11.22 Type 2 diabetes mellitus with diabetic chronic kidney disease; I13.0 Hypertensive heart and chronic kidney disease with heart failure and stage 1 through stage 4 chronic kidney disease, or unspecified chronic kidney disease; I50.9 Heart failure, unspecified; N18.4 Chronic kidney disease, stage 4 (severe); I25.2 Old myocardial infarction; I42.9 Cardiomyopathy, unspecified; F17.210 Nicotine dependence, cigarettes, uncomplicated | CPT/HCPCS: 36680; 92950 ==